=== PATIENT | female | born 1950 | race Caucasian/White ===

== ENCOUNTER → 2023-06-08 13:13 | Outpatient (REF) | payer MEDICARE, OTHER, SELFPAY ==
[2023-06-08 15:49] LABS: ALT (SGPT) 16 U/L (0-35); AST (SGOT) 22 U/L (14-36); Albumin 3.8 g/dl (3.5-5.0); Alkaline Phosphatase 94 U/L (38-126); Blood Urea Nitrogen 26 mg/dl (7-17); Carbon Dioxide 29 mmol/L (22-30); Chloride 106 mmol/L (98-107); Glucose 99 mg/dl (70-99); Magnesium 2.2 mg/dl (1.6-2.3); Phosphorus 3.5 mg/dl (2.5-4.5); Potassium 4.8 mmol/L (3.5-5.1); Sodium 136 mmol/L (135-145); Total Bilirubin 0.9 mg/dl (0.2-1.3); Total Protein 7.2 g/dl (6.3-8.2); eGFR 29.38
[2023-06-08 16:00] LABS: Intact PTH 193.5 pg/ml (13.6-85.8)
== END ==
LOC: HWLAB 13:13
PROVIDERS: ATTENDING PHYSICIAN Internal Medicine Nephrology
DX: D50.0 Iron deficiency anemia secondary to blood loss (chronic) (principal); E83.10 Disorder of iron metabolism, unspecified; K71.6 Toxic liver disease with hepatitis, not elsewhere classified; K74.60 Unspecified cirrhosis of liver; N18.1 Chronic kidney disease, stage 1; N20.0 Calculus of kidney; R35.0 Frequency of micturition
CPT/HCPCS: 36415; 80053; 83735; 83970; 84100

== ENCOUNTER → 2023-06-26 13:55 | Outpatient (REF) | payer MEDICARE, OTHER, SELFPAY | LOC: DHCBC HW 13:55 | PROVIDERS: ATTENDING PHYSICIAN Internal Medicine Cardiovascular Disease | DX: I31.39 Other pericardial effusion (noninflammatory) (principal); R06.02 Shortness of breath | CPT/HCPCS: 93308 ==

== ENCOUNTER 2023-08-05 18:29 | Inpatient (IN) | payer MEDICARE, OTHER, SELFPAY ==
[2023-08-05] VITALS (7 sets, daily range): BP systolic 113–165; BP diastolic 67–142; BMI 16.5
--- NOTE | 2023-08-05 16:04 | ED.GENMED ---
History of Present Illness
General
Chief Complaint: Anxiety
Time Seen by Provider: 08/05/23 16:04
Travel History
Have you had any contact with someone who has COVID-19?: No
Do you have any symptoms of coronavirus? Fever > 100 degrees, chills, cough, shortness of breath, sore throat, loss of taste or smell, muscle aches, or headache?: No
History of Present Illness
History of Present Illness:
HPI: Much of the history is obtained by the sister at bedside�the sister has multiple concerns
#1, she has no place to go, her son is 'emotionally avoid' and does not help the patient
#2, trouble breathing she has a history of sarcoidosis and does not tolerate steroids and currently feels as if she is wheezing
#3, 16 pound weight loss
#4, acute on chronic abdominal pain
#5, severe anxiety/depression
EXAM:
GENERAL: The patient appears somewhat weak and debilitated and borderline cachectic
HEENT: Slightly dry mucosa
CARDIOVASCULAR: No murmurs, normal heart rate, regular rhythm, No chest wall tenderness
PULMONARY: No respiratory distress, some scant wheeze noted in the lower airway and upper airway
ABDOMEN: Soft with no peritoneal signs, no tenderness
NEUROLOGIC: Fair strength all extremities, no coordination deficits
PSYCHIATRIC: Flat affect
EXTREMITIES: Nontender, no edema, moves all extremities equally
SKIN: No rash, no lesions
TIME OF INITIAL ENCOUNTER: 4:20 PM
NUMBER AND COMPLEXITY OF PROBLEMS ADDRESSED AT THE ENCOUNTER
� Chronic conditions affecting care: Asthma/sarcoidosis, CAD, high blood pressure, hyperlipidemia, CKD, hypothyroidism
� Acute Exacerbation and/or Progression of Chronic Illness: Acute exacerbation of sarcoid
� Differential Diagnosis includes: PRINCE, dehydration, electrolyte abnormality, worsening renal function, sarcoidosis exacerbation
AMOUNT AND/OR COMPLEXITY OF DATA TO BE REVIEWED AND ANALYZED
� I performed an independent evaluation of and my interpretation is:
EKG:
CT:
X-rays: Chest x-ray shows no acute abnormality
Laboratory Studies: White count 3.4, remainder of CBC unremarkable, creatinine 1.7 which is slightly improved compared to prior.
Other:
� Review of other/old records: The patient was admitted here about 4 months ago, at that time she had abnormal LFTs she had an MRI MRCP at that time echo that admission showed normal EF and normal diastolic function she was
treated with Levaquin last admission.
� Clinical information was obtained by an independent historian: I spoke to the sister at bedside
� Prescriptions/Medications Considered but not given: Did not give steroids at patient's request as she does not tolerate the steroids
� Further testing considered but not performed:
RISK OF COMPLICATIONS AND/OR MORBIDITY OR MORTALITY OF PATIENT MANAGEMENT
� Social determinants of health affecting care: Currently does not have a stable home situation
� Discussion with other providers:
� Escalation of care including admission/observation vs risk of discharge considered:Sats are in the low to mid 90%'s. She is very concerned about her breathing and she is clearly wheezing. Neb is given. Renal function is
slightly improved compared to prior. She was given IV fluids. Regardless, the sister feels that she cannot be safely sent home. She is doing poorly as an outpatient. She is also very concerned about the sarcoid.
Past History
Past History
ED Past Medical History: Asthma, CAD, GERD, HTN, Hypercholesterolemia, [place], Hypothyroidism and Other (sarcoidosis, renal insuff, hyperparathyroidism, anemia)
ED Past Surgical History: Cholecystectomy and Gynecological
Social History
Tobacco: Non-smoker
Alcohol: None
Drug: None
Personal: Single
Living: alone
Employment: Retired
Family History
Family History: Other (Noncontributory)
Phy Exam
Physical Exam
Physical Exam:
See HPI
Course
Orders/Labs/Results
Orders:
Orders
08/05/23 16:08
0.9% Sodium Chloride 1000 ml [Nss] 1,000 ml IV BOLUS
08/05/23 16:17
CR Chest - 2 Views Urgent
Comment:
Reason For Exam: sob sarcoidosis
08/05/23 16:18
Ipratropium/Albuterol Sulfate [Duoneb] 3 ml INH R NOW ONE
08/05/23 16:22
Crisis Consult Urgent
Reason for Consult: severe anxiety / depression
08/05/23 16:27
Complete Blood Count/With Diff Urgent
Comprehensive Metabolic Panel Urgent
TSH Reflex To Free T4 Urgent
08/05/23 17:33
Famotidine [Pepcid] 20 mg IV NOW STA
08/05/23 18:05
EKG [Electrocardiogram (*1)] Stat
Reason for Study: QTc Monitoring
Abnormal Lab Results
08/05/23
16:27
WBC 3.4 L 10^3/uL
(4.8-10.8)
RDW 15.0 H %
(11.5-14.5)
Absolute Lymphs (auto) 0.4 L 10^3/uL
(1.2-3.4)
Lymphocytes % 11.1 L %
(20.5-51.1)
Monocytes % 14.0 H %
(1.7-9.3)
BUN 30 H mg/dl
(7-17)
Creatinine 1.7 H mg/dL
(0.6-1.0)
08/05/23 16:27
08/05/23 16:27
Vital Signs
Initial and Last Documented VS:
Initial Vital Signs
Temp Pulse Resp BP Pulse Ox
97.8 F 63 20 113/67 97
08/05/23 15:31 08/05/23 15:31 08/05/23 15:31 08/05/23 15:31 08/05/23 15:31
Last Documented Vital Signs
Temp Pulse Resp BP Pulse Ox
97.8 F 63 20 113/67 97
08/05/23 15:31 08/05/23 15:31 08/05/23 15:31 08/05/23 15:31 08/05/23 15:31
*Critical Care Note
Total Time (30-74mins, 75-104mins- exclusive of procedures): Not Applicable
ED Attending Note
-
Portions of this chart may have been created with voice recognition software.� Occasional wrong word or��sound alike� substitutions may have occurred due to the inherent limitations of voice recognition software.
Discharge Plan
Departure
Patient Disposition: Admit
Date of Disposition: 08/05/23
Time of Disposition: 18:13
Presentation/result/management discussed w/ accepting MD/DO: Hospitalist
Discharge Problem:
Adult failure to thrive
Prescriptions:
No Action
budesonide [Pulmicort] 0.5 MG/2 ML suspension for nebulization
0.5 mg inhalation R BID
acetaminophen [Tylenol Extra Strength] 500 mg Tablet
500 mg PO DAILYPRN PRN (Reason: mild pain)
lorazepam 0.5 mg Tablet
0.25 mg PO HSPRN PRN (Reason: anxiety)
Patient Comments:
04/06/23 filled on 02/09/23 #30
levothyroxine 50 mcg Tablet
50 mcg PO DAILY
erythromycin 5 mg/gram (0.5 %) Ointment
1 applic BOTH EYES HS
Patient Comments:
04/06/23 filled on 03/21/23
Systane (PF) 0.4-0.3 % Dropperette
1 drp BOTH EYES BID
levalbuterol tartrate [Xopenex HFA] 45 mcg/actuation Hfa Aerosol Inhaler
2 inh INHALATION R Q6HPRN PRN (Reason: sob)
losartan 50 MG tablet
50 mg PO HS
atorvastatin 80 MG tablet
80 mg PO HS
losartan 25 MG tablet
25 mg PO DAILY
aspirin 81 MG tablet,delayed release (DR/EC)
81 mg PO DAILY Qty: 0 0RF
ipratropium-albuterol 0.5 mg-3 mg(2.5 mg base)/3 mL Solution For Nebulization
3 ml INHALATION R Q6HPRN PRN (Reason: sob)
bismuth subsalicylate [Pepto-Bismol] 262 mg/15 mL Suspension
262 mg PO BIDPRN PRN (Reason: sour somach)
clotrimazole-betamethasone 1-0.05 % Cream
1 applic TOPICAL BIDPRN PRN (Reason: fungal infection)
Patient Comments:
04/06/23 patient applies cream to vaginal area.
nitroglycerin 0.4 mg Tablet, Sublingual
0.4 mg SUBLINGUAL [id number] PRN (Reason: chest pain)
carvedilol 12.5 mg Tablet
12.5 mg PO BID Qty: 60 0RF
polyethylene glycol 3350 [HealthyLax] 17 gram Powder In Packet
17 g PO DAILY PRN (Reason: constipation) Qty: 0 0RF
levofloxacin 250 mg Tablet
250 mg PO DAILY Qty: 5 0RF
sucralfate [Carafate] 1 gram tablet
1 g PO ACHS Qty: 90 0RF
omeprazole 40 mg capsule,delayed release(DR/EC)
40 mg PO DAILY 56 Days Qty: 56 0RF
Referrals:
UNKNOWN - PT DOES,NOT KNOW [Family Provider] -
Discharge Date and Time
Print Language: PORTUGUESE
[2023-08-05 16:55] LABS: % Eosinophils 0.6 % (0-6); % Immature Granulocytes 0.3 % (0-0.5); % Lymphocytes 11.1 % (20.5-51.1); Absolute Lymphocytes 0.4 10^3/uL (1.2-3.4); Absolute Monocytes 0.5 10^3/uL (0.1-0.6); Absolute Neutrophils 2.5 10^3/uL (1.4-6.5); Hematocrit 40.5 % (37.0-47.0); Hemoglobin 13.4 g/dL (12.0-16.0); Mean Corp Hgb Conc. 33.1 g/dL (33.0-37.0); Mean Corpuscular Hgb 28.5 pg (27.0-31.0); Mean Platelet Volume 10.3 fL (7.4-10.4); Nucleated Red Blood Cells % 0 %; Platelet Count 184 10^3/uL (130-400); Red Blood Cell Count 4.71 10^6/uL (4.20-5.40); White Blood Cell Count 3.4 10^3/uL (4.8-10.8)
[2023-08-05 17:03] LABS: ALT (SGPT) 15 U/L (0-35); AST (SGOT) 21 U/L (14-36); Albumin 3.5 g/dl (3.5-5.0); Alkaline Phosphatase 94 U/L (38-126); Blood Urea Nitrogen 30 mg/dl (7-17); Carbon Dioxide 22 mmol/L (22-30); Chloride 107 mmol/L (98-107); Glucose 96 mg/dl (70-99); Potassium 4.8 mmol/L (3.5-5.1); Sodium 136 mmol/L (135-145); Total Bilirubin 0.8 mg/dl (0.2-1.3); Total Protein 6.7 g/dl (6.3-8.2); eGFR 31.47
[2023-08-05 17:34] LABS: TSH Reflex To Free T4 0.97 uIU/ml (0.47-4.68)
[2023-08-05] MEDS: DUONEB 3 ML INH ×2 (17:36→23:41)
[2023-08-05] MEDS: NSS 1000 IV (17:37)
[2023-08-05] MEDS: PEPCID 20 MG IV (17:43)
--- NOTE | 2023-08-05 17:46 | HPS.HSE ---
Family Physician
-
Family Physician: NOT KNOW UNKNOWN - PT DOES
Chief Complaint
-
sob
History of Present Illness
73 year old with PMH for asthma, coronary artery disease, GERD, hypertension, hyperlipidemia, [place], hypothyroidism, sarcoidosis, renal insufficiency, hyperparathyroidism, anemia presented to us with short of breath which is worse with activity,
nonproductive cough for past few days. She lost 16 pounds due to the recent stress. Patient stated some headache and dizziness. She fainted a couple times over the past few weeks. Patient stated poor appetite. Denied fever. Stated some chills.
Denied chest pain. She has a chronic epigastric pain. Denied nausea vomiting, diarrhea. Denied dysuria hematuria.
Patient received neb treatment in ER.
Admitting for further management
Medical History
Past Medical History
Past Medical History: Reports Other
Additional Past Medical History:
HTN, Hypercholesterolemia, Hypothyroidism and Renal Failure, sarcoidosis, coronary artery disease
Past Surgical History: Reports Other
Additional Past Surgical History:
Cardiac stents
Cholecystectomy
Hysterectomy
Social History
Tobacco: Non-smoker
Alcohol: None
Drug: None
Personal: Single
Family History
Family History: Not pertinent
Allergies / Home Medications
Allergies reflects when Allergies were last updated in [facility].
Home Medications with original date entered in [facility]
Allergy/Medication List:
Allergies
Allergy/AdvReac Type Severity Reaction Status Date / Time
amlodipine Allergy Unknown Verified 08/05/23 15:30
codeine Allergy Unknown Verified 08/05/23 15:30
abebe Allergy Unknown Verified 08/05/23 15:30
fluticasone Allergy Unknown Verified 08/05/23 15:30
[From Advair Diskus]
latex Allergy red rash Verified 08/05/23 15:30
and
swelling
metoprolol Allergy Unknown Verified 08/05/23 15:30
Penicillins Allergy unsure as Verified 08/05/23 15:30
mother
passed
whether
she is or
not
pentazocine lactate Allergy hallucinations, Verified 08/05/23 15:30
[From Talwin] bad head,
terrible
headaches
prednisone Allergy terrible Verified 08/05/23 15:30
headaches,
bleeding,
racing
heart
salmeterol Allergy Unknown Verified 08/05/23 15:30
[From Advair Diskus]
powders, flours (some) Allergy Due to Uncoded 08/05/23 15:30
Sarcoidosis
Home Medications
budesonide 0.5 mg/2 mL suspension for nebulization (Pulmicort) 0.5 mg inhalation R BID Lung/Breathing Issues 11/09/20
acetaminophen 500 mg tablet (Tylenol Extra Strength) 500 mg PO DAILYPRN PRN mild pain 03/03/23
atorvastatin 80 mg tablet 80 mg PO HS High Cholesterol 03/03/23
erythromycin 5 mg/gram (0.5 %) eye ointment 1 applic BOTH EYES HS Eye Condition 03/03/23
levalbuterol tartrate 45 mcg/actuation aerosol inhaler (Xopenex HFA) 2 inh inhalation R Q6HPRN PRN sob 03/03/23
levothyroxine 50 mcg tablet 50 mcg PO DAILY Thyroid 03/03/23
lorazepam 0.5 mg tablet 0.25 mg PO HSPRN PRN anxiety 03/03/23
losartan 25 mg tablet 25 mg PO DAILY Blood Pressure 03/03/23
losartan 50 mg tablet 50 mg PO HS Blood pressure 03/03/23
peg 400-propylene glycol (PF) 0.4 %-0.3 % eye drops in a dropperette (Systane (PF)) 1 drp BOTH EYES BID Eye Condition 03/03/23
aspirin 81 mg tablet,delayed release 81 mg PO DAILY Blood clot prevention/tx ##0 03/05/23
bismuth subsalicylate 262 mg/15 mL oral suspension (Pepto-Bismol) 262 mg PO BIDPRN PRN sour somach 04/06/23
clotrimazole-betamethasone 1 %-0.05 % topical cream 1 applic topical BIDPRN PRN fungal infection 04/06/23
ipratropium 0.5 mg-albuterol 3 mg (2.5 mg base)/3 mL nebulization soln 3 ml inhalation R Q6HPRN PRN sob 04/06/23
nitroglycerin 0.4 mg sublingual tablet 0.4 mg sublingual [id number] PRN chest pain 04/06/23
carvedilol 12.5 mg tablet 12.5 mg PO BID Blood pressure #60 tabs 04/10/23
levofloxacin 250 mg tablet 250 mg PO DAILY Infection #5 tabs 04/10/23
omeprazole 40 mg capsule,delayed release 40 mg PO DAILY Gastrointestinal issue 8 weeks #56 caps 04/10/23
polyethylene glycol 3350 17 gram oral powder packet (HealthyLax) 17 g PO DAILY PRN constipation #0 ea 04/10/23
sucralfate 1 gram tablet (Carafate) 1 g PO ACHS Gastrointestinal issue #90 tabs 04/10/23
Review of Systems
-
Constitutional: Reports Weight Loss
EENT: Reports No Symptoms
Respiratory: Reports Cough and Trouble Breathing
Cardiac: Reports No Symptoms
Abdomen/GI: Reports No Symptoms
: Reports No Symptoms
Musculoskeletal: Reports No Symptoms
Skin: Reports No Symptoms
Neurological: Reports Dizzy, Headache and Weakness
Endocrine: Reports No Symptoms
Hematologic/Lymphatic: Reports No Symptoms
Psych: Reports No Symptoms
Physical Exam
Vital Signs
Vital Signs
Temp Pulse Resp BP Pulse Ox
97.8 F 63 20 113/67 97
08/05/23 15:31 08/05/23 15:31 08/05/23 15:31 08/05/23 15:31 08/05/23 15:31
Physical Exam
General: Well Developed, Well Nourished and No Apparent Distress
HEENT: NormoCephalic, Moist mucous membranes and Atraumatic
Respiratory: Wheezes
Cardiac: S1/S2 and Regular Rhythm; No Murmur or Rub
GI: Soft, Non Tender, Non Distended and Normal Bowel Sounds; No Organomegaly
Rectal: Deferred by Provider
Musculoskeletal: No Clubbing, No Cyanosis and No Edema
Skin: No Rash
Neuro: AO x 3 and Nonfocal/grossly intact
Psych: Calm
Laboratory Results
-
08/05/23 16:27
08/05/23 16:27
Laboratory Results
Total Bilirubin 0.8 mg/dl (0.2-1.3) 08/05/23 16:27
AST 21 U/L (14-36) 08/05/23 16:27
ALT 15 U/L (0-35) 08/05/23 16:27
Alkaline Phosphatase 94 U/L (38-126) 08/05/23 16:27
Data Reviewed
-
Lab Data: Labs Reviewed by me
Impression/Plan
-
# Short of breath/cough likely from pulmonary sarcoidosis flare
# History of COPD and asthma
-Steroid intolerance-because of psychosis
-Outpatient follows up with Dr. Nj
-Albuterol and budesonide
-IV Levaquin
-Pulmonology consult
#hxt of weakness/fainting
-PT consulted
-orthostatics
# HTN
- cont� losartan and Coreg
#hxt of PUD/hiatal hernia
-Omeprazole and Carafate continued
#CAD with CARINA stent to RCA in 2014 after STEMI
#Hyperlipidemia
-continue aspirin and Coreg, statin
#Hypothyroidism
-cont� Synthroid
#CKD3b
-Creatinine stable
#Arthritis/fibromyalgia
#Anxiety
-lorazepam PRN
#Diverticulosis
#Degenerative disc disease at L4-5
#DVT Prophylaxis- SCD
#Full code
--- NOTE | 2023-08-05 18:09 | W.PN.UPDATE ---
Update Note
Progress Note Update
This note serves as an addendum to the H&P by spares scheduler Monika Perez on August 05, 2023.
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
stents, stomach wall thickening, hiatal hernia, chronic biliary dilatation, small volume ascites, small bilateral pleural effusions, 3.9 cm hepatic hemangioma in the right lobe of the liver, Chronic hypercalcemia, Hypothyroidism, Asthma, Chronic
kidney disease, renal cysts, Arthritis/fibromyalgia, Anxiety, Diverticulosis and Degenerative disc disease L4-L5 presented with worsening cough and worsening shortness of breath, she did report chronic shortness of breath. Patient has been under a
lot of stress lately, and lost her home and moved into her son's home, she has had several episodes of syncope. She also reported some chills and headache. She has not been eating much.
Vital Signs -- saturating well now on room air, initially needed 2 L. Otherwise vitals stable.
Physical Exam
General: Anxious
HEENT: Normocephalic
Cardiovascular: S1-S2. RRR.
Respiratory: Crackles (bilateral), Non-Labored Respirations and Stridor (n)
GI: Soft and Non Distended. Positive bowel sounds.
Neurology: Awake and Alert
Skin: Warm and Dry
Assessment/Plan
Shortness of Breath
Cough
Sarcoidosis
-Avoid steroids as patient intolerant of steroids
-Levaquin 250 mg IV daily (first check QTc)
-Duonebs scheduled
-Consult pulmonary, recommendations appreciated
Recent Syncopal episodes
-Orthostatic vital signs
-Normal Saline 75 cc/hr
-Echocardiogram
-Troponins
Stress/Anxiety
History of Anxiety
-Will consider psychiatry consult
Acute hypoxic respiratory insufficiency
Acute bronchitis
Fluid overload
Epigastric pain with elevated LFTs - LFTs now WNL
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
Hypertension - monitor vital signs. Continue home Losartan and Coreg.
Coronary disease with stents - Continue home Aspirin and Statin.
History of OR
Stomach wall thickening
Hiatal hernia
Chronic biliary dilatation
Small volume ascites
Small bilateral pleural effusions
3.9 cm hepatic hemangioma in the right lobe of the liver
Chronic hypercalcemia
Hypothyroidism - Continue home Levothyroxine.
Asthma
Chronic kidney disease Stage 3 to 4
Renal cysts
Arthritis/fibromyalgia
GERD
Anxiety
Diverticulosis
Degenerative disc disease L4-L5
History of COVID-19
DVT Prophylaxis: Lovenox
--- NOTE | 2023-08-05 21:00 | PTCARENOTE ---
Received pt into room 2139. Patient is ambulatory x1 assist without a walker, AAOx3, VSS. Patient is very anxious. Tele, NSR. Moist, productive cough. Lungs sounds include inspiratory/expiratory wheeze and coarse. 98% on RA. The rest of assessment
as documented. Patient resting comfortably in bed, call dominguez within reach.
[2023-08-05] MEDS: HEPARIN SC (21:23)
[2023-08-05] MEDS: REFRESH EYE DROPS (PF) BOTH EYES (21:27)
[2023-08-05] MEDS: PULMICORT INH (21:39)
[2023-08-05] MEDS: DUONEB INH (21:39)
[2023-08-05] MEDS: COREG 12.5 MG PO (21:43)
[2023-08-05] MEDS: COZAAR 50 MG PO (21:43)
[2023-08-05] MEDS: LIPITOR 80 MG PO (21:43)
[2023-08-05] MEDS: ERYTHROMYCIN 0.5% OPHTHALMIC OINTMENT 1 APPLIC BOTH EYES (22:21)
[2023-08-05] MEDS: LEVAQUIN 50 IV (22:21)
[2023-08-05] MEDS: TYLENOL 500 MG PO (22:35)
--- NOTE | 2023-08-05 23:15 | W.PN.UPDATE ---
Update Note
Progress Note Update
patient concerned about Ativan giving her a hung over sensation along with nausea the following day after taking it. She asked for Valium which she had taken many years ago and she doesn't recall any concerns..We agreed on a lower dose though (1 mg)
since she does have a tendency to be sensitive to this class of medications. She describes needing something to take the 'edge' off as she explained her unfortunate situation.
[2023-08-05] MEDS: NON-FORMULARY ITEM TOPICAL (23:17)
[2023-08-06] VITALS (8 sets, daily range): BP systolic 81–151; BP diastolic 49–74; PULSE 59–69; O2SAT 96
[2023-08-06] MEDS: VALIUM 1 MG PO ×3 (00:16→23:45)
[2023-08-06 00:20] LABS: Troponin I < 0.012 ng/ml
[2023-08-06] MEDS: NSS 500 IV (04:33)
--- NOTE | 2023-08-06 06:50 | PTCARENOTE ---
pt BP at 0300 vitals 81/49 automatic. Manual 76/42. Notified [facility]. Ordered 500ml NS Bolus. Recheck BP 128/69.
[2023-08-06 07:16] LABS: Hematocrit 38.9 % (37.0-47.0); Hemoglobin 13.3 g/dL (12.0-16.0); Mean Corp Hgb Conc. 34.2 g/dL (33.0-37.0); Mean Corpuscular Hgb 28.9 pg (27.0-31.0); Mean Corpuscular Volume 84.4 fL (81.0-99.0); Mean Platelet Volume 10.5 fL (7.4-10.4); Platelet Count 177 10^3/uL (130-400); Red Blood Cell Count 4.61 10^6/uL (4.20-5.40); Red Cell Dist. Width 14.9 % (11.5-14.5); White Blood Cell Count 3.5 10^3/uL (4.8-10.8)
[2023-08-06] MEDS: PULMICORT 0.5 MG INH ×2 (07:27→20:28)
[2023-08-06] MEDS: DUONEB 3 ML INH ×4 (07:27→20:28)
[2023-08-06 07:33] LABS: Blood Urea Nitrogen 28 mg/dl (7-17); Calcium 9.8 mg/dl (8.4-10.2); Carbon Dioxide 18 mmol/L (22-30); Chloride 111 mmol/L (98-107); Estimated Creatinine Clearance 23 ml/min; Glucose 92 mg/dl (70-99); Sodium 137 mmol/L (135-145); eGFR 33.84
[2023-08-06 07:35] LABS: Troponin I < 0.012 ng/ml
[2023-08-06] MEDS: SYNTHROID PO (08:08)
[2023-08-06] MEDS: COREG PO (08:28)
[2023-08-06] MEDS: COZAAR PO (08:29)
--- NOTE | 2023-08-06 09:24 | CON.PUL ---
Consultation
Consultation Request
Date/Time Consultation Requested: 08/05/2023 - 2049
Date/Time Consultation Performed: 08/06/2023 - 1039
Requesting Provider: DYLAN Wadsworth
Performing Provider: Dr. Ortega
Reason for Consultation: Hx of sarcoidosis
Medical History
-
Chief Complaint: Weight loss, depression, weakness and cough
History of Present Illness:
73-year-old female with past med history of sarcoidosis, CAD s/p coronary stents, Evert, GERD and history of COPD with severe restrictive lung disease presents with multiple complaints including depression, weakness, cough and shortness of breath.
She also endorses weight loss. She says she is lost 16 pounds due to recent stress. CXR does not show any acute cardiopulmonary process. And there are stable advanced chronic changes likely related to her history of sarcoidosis. She was admitted
to the hospitalist service, started on DuoNebs, Levaquin, and continued on her budesonide 0.5 mg inhaled BID. Pulmonary service now consulted for additional management/recommendations.
When I saw the patient she was clearly overwhelmed. She says she lost her home this past May as she was renting from the homeowners, and then the home is now being sold so the patient was kicked out. The patient has been living with her son
and this is 'not working out.' She is very stressed. About 10 days ago she developed a cough which is severe at times and has caused her pain in her chest due to the coughing spells. Cough is productive of a pale lemon colored phlegm. She denies
seeing any blood in her phlegm. She also has a headache. She says that her current symptoms are consistent with her sarcoidosis flares although it is more severe this time. She has been taking her nebulized inhalers as prescribed, including her
DuoNebs TID and her budesonide BID. She uses Xopenex at home only as needed. Her other main complaint is that she is having difficulty swallowing and this is caused her to lose some weight. She also feels very weak and this is affecting her
ability to take care of herself and ambulate. She currently denies abdominal pain, nausea, diarrhea, fevers or chills. Of note, she says that she cannot take prednisone because it causes her hands to bleed, which is the adverse effect that
happened last time she took it 'many years ago.'
Says she was Dx with sarcoidosis in [address] [facility] [address] Lanier. She takes budesonide BID. She also follows with us in the office, last saw Dr. Nj on 06/15/2023. No changes to her pulmonary regimen was made. Her inhaled budesonide was
refilled as well as her as needed Xopenex, her prn duonebs, and her prn Ativan. A Levaquin prescription was provided X7 days just in case. She had walked 900 feet during that office visit with SpO2 remaining 95% oxygen and heart rate was adequate.
PMHX: Pulmonary sarcoidosis, CAD s/p coronary stents, Hx of [place], HTN, anxiety, breast pain, Hx of costochondritis, GERD, Hx of COVID-19, hypothyroidism, COPD
PSHx: Cholecystectomy, hysterectomy, tooth pulled
Past Medical History
Past Medical History: Other (Above as per HPI)
Past Surgical History: Other (Above as per HPI)
Social History
Tobacco: Former Smoker (Quit >15 years ago)
Alcohol: None
Drug: None
Environmental Exposures: [place] to live [place] with [place] exposure[place] >15 years has a cat
Family History
Family History: CAD (Mother: History of CABG x 4; maternal grandmother: [place]) and Cancer (Father: Melanoma)
Allergies / Home Medications
Allergies
Allergy/AdvReac Type Severity Reaction Status Date / Time
amlodipine Allergy Unknown Verified 08/05/23 15:30
codeine Allergy Unknown Verified 08/05/23 15:30
abebe Allergy Unknown Verified 08/05/23 15:30
fluticasone Allergy Unknown Verified 08/05/23 15:30
[From Advair Diskus]
latex Allergy red rash Verified 08/05/23 15:30
and
swelling
metoprolol Allergy Unknown Verified 08/05/23 15:30
Penicillins Allergy unsure as Verified 08/05/23 15:30
mother
passed
whether
she is or
not
pentazocine lactate Allergy hallucinations, Verified 08/05/23 15:30
[From Talwin] bad head,
terrible
headaches
prednisone Allergy terrible Verified 08/05/23 15:30
headaches,
bleeding,
racing
heart
salmeterol Allergy Unknown Verified 08/05/23 15:30
[From Advair Diskus]
powders, flours (some) Allergy Due to Uncoded 08/05/23 15:30
Sarcoidosis
Home Medications
�Medication �Instructions �Recorded �Confirmed �Last Taken �Type
budesonide 0.5 mg/2 mL suspension 0.5 mg inhalation R BID 11/09/20 08/05/23 08/05/23 History
for nebulization (Pulmicort) Lung/Breathing Issues
acetaminophen 500 mg tablet 500 mg PO DAILYPRN PRN mild pain 03/03/23 08/05/23 04/05/23 History
(Tylenol Extra Strength)
atorvastatin 80 mg tablet 80 mg PO HS High Cholesterol 03/03/23 08/05/23 08/04/23 History
erythromycin 5 mg/gram (0.5 %) eye 1 applic BOTH EYES HS Eye Condition 03/03/23 08/05/23 08/04/23 History
ointment
levalbuterol tartrate 45 2 inh inhalation R Q6HPRN PRN sob 03/03/23 08/05/23 Unknown History
mcg/actuation aerosol inhaler
(Xopenex HFA)
levothyroxine 50 mcg tablet 50 mcg PO DAILY Thyroid 03/03/23 08/05/23 08/05/23 History
lorazepam 0.5 mg tablet 0.25 mg PO HSPRN PRN anxiety 03/03/23 08/05/23 04/05/23 History
losartan 25 mg tablet 25 mg PO DAILY Blood Pressure 03/03/23 08/05/23 08/05/23 History
losartan 50 mg tablet 50 mg PO HS Blood pressure 03/03/23 08/05/23 08/04/23 History
peg 400-propylene glycol (PF) 0.4 1 drp BOTH EYES BID Eye Condition 03/03/23 08/05/23 08/05/23 History
%-0.3 % eye drops in a dropperette
(Systane (PF))
aspirin 81 mg tablet,delayed 81 mg PO DAILY Blood clot 03/05/23 08/05/23 08/05/23 Rx
release prevention/tx ##0
ipratropium 0.5 mg-albuterol 3 mg 3 ml inhalation R QID 04/06/23 08/05/23 08/05/23 History
(2.5 mg base)/3 mL nebulization
soln
nitroglycerin 0.4 mg sublingual 0.4 mg sublingual [id number] PRN 04/06/23 08/05/23 Unknown History
tablet chest pain
carvedilol 12.5 mg tablet 12.5 mg PO BID Blood pressure #60 04/10/23 08/05/23 08/05/23 Rx
tabs
levofloxacin 250 mg tablet 250 mg PO DAILY Infection #5 tabs 04/10/23 08/05/23 08/05/23 Rx
hypochlorous acid 0.01 %-sodium 1 spray topical BID both eyes 08/05/23 08/05/23 Unknown History
chloride topical spray (Avenova)
omeprazole 40 mg capsule,delayed 40 mg PO DAILYPRN PRN gerd 08/05/23 08/05/23 Unknown History
release
Review of Systems
-
History Source: Patient
All other systems: Negative unless noted
Vitals / Labs / Diagnostic Testing
Vital Signs
Temp Pulse Resp BP Pulse Ox
97.8 F 57 16 102/61 98
08/06/23 07:20 08/06/23 08:29 08/06/23 07:32 08/06/23 08:29 08/06/23 07:32
Lab Data
08/06/23 06:50
08/06/23 06:50
Diagnostic Testing:
Physical Exam
-
HEENT: Normocephalic and Anicteric
Cardiovascular: S1/S2 and Peripheral Edema (negative)
Respiratory: Wheeze (negative), Rales (negative), Accessory Resp Muscle Use (negative) and Other (Reduced breath sounds; prolonged expiration with turbulent airflow heard)
GI: Soft, Non Distended, Non Tender and Normal Bowel Sounds
Neurology: Awake and Alert
Skin: Warm and Dry
General: Comfortable and Other (Appears anxious)
Assessment
-
Assessment: 73-year-old female with past med history of sarcoidosis, CAD s/p coronary stents, Evert, GERD and history of COPD with severe restrictive lung disease presents with multiple complaints including depression, weakness, cough and shortness
of breath. She also endorses weight loss. She says she is lost 16 pounds due to recent stress. CXR does not show any acute cardiopulmonary process. And there are stable advanced chronic changes likely related to her history of sarcoidosis. She
was admitted to the hospitalist service, started on DuoNebs, Levaquin, and continued on her budesonide 0.5 mg inhaled BID. Pulmonary service now consulted for additional management/recommendations.
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
Impression:
#Shortness of breath with paroxysmal coughing spells suspected to be due to sarcoidosis versus COPD flare - she believes that it feels more like the former
#Failure to thrive with dysphagia
#Depression, likely due to adjustment disorder given her recent life events
#Leukopenia � chronic
#Hx of pulmonary sarcoidosis (stage IV) on nebulized ICS at home
#Hypothyroidism
#Hypertension
#CKD III-IV
#Mild intermittent asthma
Plan:
- Continue Duonebs QID with prn doses in between
- Continue ABx with Levaquin --> not sure if she truly needs this given no PNA seen on CXR. I will change this to Zithromax (mainly for anti-inflammatory effect) and complete 5 days (QTc: 409ms)
- I offered to start systemic steroids with prednisone versus Solu-Medrol, however she is not willing to do this considering she has had a serious side effect in the remote past where she was bleeding 'through her skin.'
- Maintain MAP>65
- Psych consulted
- Recommend GI consult given her dysphagia and weight loss in this female patient >50-years old
- Goal BG 140-180mg/dL
- Replete electrolytes with K>4, Mg>2
- PT/OT
- Encourage incentive spirometer
- stress ulcer ppx: n/a
- DVT ppx: HSQ
Pulmonary service will continue to follow along.
Total time spent today was 55 minutes for this encounter. Time includes reviewing laboratory test/imaging results, reviewing pertinent medical records, obtaining and reviewing medical history, performing an appropriate exam, ordering medications,
tests and procedures. Time also includes documentation of this encounter, coordinating patient care and communicating with other healthcare professionals. Total time does not include separately billed tests performed on this date of service.
Data:
CXR 08-05-2023:
1. No acute cardiopulmonary process.
2. Stable appearance of advanced chronic changes related to sarcoidosis.
Outpatient [facility] Data:
PFT:
������ [place] 04/13/23: FVC 1.47/49%, FEV1 0.63/20%, ratio 43. When compared to 2019, this is stable
�������[place] 06/14/18 reveals FVC 1.57/49%, FEV1 0.65/27% ratio 41 there is a 24% improvement in the FEV1 following bronchodilator, when compared to spirometry FVC has dropped from 2.38 to 1.57.
�������PFT 2014 reveals FVC 2.38/71%, FEV1 0.86/34% ratio 36, TLC 4.29/85% and DLCO 14.1/57%.
[2023-08-06] MEDS: REFRESH EYE DROPS (PF) 1 DROPS BOTH EYES ×2 (09:41→20:03)
[2023-08-06] MEDS: HEPARIN SC ×2 (09:42→09:49)
[2023-08-06] MEDS: ASPIR LOW (ENTERIC COATED) 81 MG PO (09:42)
[2023-08-06] MEDS: NON-FORMULARY ITEM 1 SPRAY TOPICAL ×2 (09:47→22:21)
--- NOTE | 2023-08-06 10:34 | CM ---
Initial assessment completed with patient who was living in a 2 story home w basement with B/B on 1st floor, 3 steps to enter. Lives in [facility]. Son lives with her and she said she cannot go back to the house because of him. Her sister came to
her home and brought her to the hospital. Patient is unsure where she will go after discharge. Sister lives in the [facility]. Support system is her sister. Cannot rely on son at this time. [employer] patient was independent and drove. Has a
nebulizer machine, no in-home services.
Patient reports that she is uncomfortable in the room she is in. She feels isolated and the room has a strange feeling. Nursing staff is aware. Nursing yard labor supervisor notified. Pharmacy will be [facility] in [place]. PCP is Dr. Nj.
Anticipate No skilled needs at discharge.
--- NOTE | 2023-08-06 11:33 | PTCARENOTE ---
pt to be transferred to a semi private. per MD pt requested a private room and no patient is stating she demands a roommate and that she is 'not taking no for an answer' MD made aware and he will also be placing a psych consult. pt states she does
not like the valium but also does not like to take ativan that she has prescribed for her anxiety either
--- NOTE | 2023-08-06 12:33 | CON.MD ---
Consultation - Medical
-
chart reviewed- pt seen. 45 minutes spent.
This is a 73 year old with PMH for asthma, coronary artery disease, GERD, hypertension, hyperlipidemia, [place], hypothyroidism, sarcoidosis, renal insufficiency, hyperparathyroidism, anemia who is currently admitted to for failure to thrive,
weight loss.
She is bright, pleasant, admittedly anxious over her current living situation. She says that she has lost a lot of weight over the last few months because of the uncertainty of her living situation. About a month ago the ed special education teacher of the house where
she had been renting an 'in law apartment' for 20 years informed her that she had to move out due to a sale of the house. 'I am 74 years old I didn't know what to do or where to go, I have sarcoidosis and lots of other medical problems.' Her son
decided she could move in with him, which pt did, but the setting is not good for both of them to be living together. She says that he is difficult to live with and not sympathetic to her needs. Her anxiety increased, and she became unable to eat
much.
Her anxiety is not described as panic attacks, more a general sense of unease. She denies depressed mood. She is understandably anxious about what the future will hold, as she knows she can not live with her son- 'My sister will let me stay with
her until we can find something better.' She also describes loneliness.
In terms of the anxiety, she says she is very sensitive to medications, and that even the lowest dose of Ativan gave her a 'morning hangover.' Valium 1 mg has helped her in the past, and she would like it to be available on a prn basis for her
while here, although it too has a 'hangover ' effect on her. She is not interested in adding Remeron or any other antidepressants- which I do not think she needs.
MSE- Alert, pleasant though anxious. Thoughts clear and coherent. No psychotic symptoms; mood not depressed. No suicidal or homicidal ideation. Cognition intact. Oriented x 3. Insight and judgment intact.
TSH normal
A/P
Intermittent anxiety secondary to recent stressors
Would rx Valium 1 mg prn HS rather than Ativan, as pt requests.
[2023-08-06 12:53] LABS: Troponin I < 0.012 ng/ml
--- NOTE | 2023-08-06 14:36 | W.PN.HOSP.TC ---
Today's Communication/Plan
-
Continue antibiotics
Appreciate pulmonary recommendations
Monitor QTc while on fluoroquinolone
Assessment / Plan
Assessment / Plan
Physical Exam
General: Anxious
HEENT: Normocephalic
Cardiovascular: S1-S2. RRR.
Respiratory: Crackles (bilateral), Non-Labored Respirations and Stridor (n)
GI: Soft and Non Distended. Positive bowel sounds.
Neurology: Awake and Alert
Skin: Warm and Dry
Assessment/Plan
Shortness of Breath
Cough
Sarcoidosis
-Avoid steroids as patient intolerant of steroids
-Levaquin 250 mg IV daily (monitor QTc)
-Duonebs scheduled
-Consult pulmonary, evaluation and recommendations appreciated
Recent Syncopal episodes
-Orthostatic vital signs negative on August 06, 2023
-Normal Saline 75 cc/hr
-Echocardiogram
-Troponins negative
Stress/Anxiety
History of Anxiety
-Psychiatry consulted, recommendations appreciated: switched to prn Valium (instead of prn Ativan) as per psychiatry
Acute hypoxic respiratory insufficiency
Acute bronchitis
Fluid overload
Epigastric pain with elevated LFTs - LFTs now within normal limits
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
Hypertension - monitor vital signs. Continue home Losartan and Coreg.
Coronary disease with stents - Continue home Aspirin and Statin.
History of [place]
Stomach wall thickening
Hiatal hernia
Chronic biliary dilatation
Small volume ascites
Small bilateral pleural effusions
3.9 cm hepatic hemangioma in the right lobe of the liver
Chronic hypercalcemia
Hypothyroidism - Continue home Levothyroxine.
Asthma
Chronic kidney disease Stage 3 to 4
Renal cysts
Arthritis/fibromyalgia
GERD
Anxiety
Diverticulosis
Degenerative disc disease L4-L5
History of COVID-19
DVT Prophylaxis: Lovenox
Anticipated Discharge: 24 - 48 hours
Subjective/Interval History
-
Date of Service: August 06, 2023
Patient was seen and examined. She now reported that she wants to be in a room with a roommate, says she is still feeling some shortness of breath and cough.
Objective Data
-
Labs:
Laboratory Results
08/06/23
06:50
WBC 3.5 L
Hgb 13.3
Hct 38.9
Plt Count 177
Sodium 137
Potassium 5.0
Chloride 111 H
Carbon Dioxide 18 L
BUN 28 H
Creatinine 1.6 H
Glucose 92
Calcium 9.8
Vital Signs:
Vital Signs
Temp Pulse Resp BP Pulse Ox
97.7 F 59 18 118/69 97
08/06/23 12:17 08/06/23 12:17 08/06/23 12:17 08/06/23 12:17 08/06/23 12:17
I&O
08/05/23 08/06/23 08/07/23
06:59 06:59 06:59
Intake Total 320 / 320
Balance 320 / 320
[2023-08-06] MEDS: PROTONIX 40 MG PO (15:16)
--- NOTE | 2023-08-06 15:27 | PTCARENOTE ---
pt requesting a roommate. on standard precautions. being transferred to [facility]. report to be called and transferred via wheelchair
--- NOTE | 2023-08-06 18:26 | PTCARENOTE ---
Patient received from [address] [place] [address] awake alert and oriented. does have mild anxiety. Requesting and given tylenol . Call dominguez in reach.
[2023-08-06] MEDS: TYLENOL 500 MG PO (18:29)
[2023-08-06 19:42] LABS: Troponin I < 0.012 ng/ml
[2023-08-06] MEDS: ZITHROMAX INFUSION 250 IV (22:21)
[2023-08-06] MEDS: TESSALON PERLES 200 MG PO (22:22)
[2023-08-06] MEDS: LIPITOR 80 MG PO (22:22)
[2023-08-06] MEDS: HEPARIN 5000 UNITS SC (22:22)
[2023-08-06] MEDS: COZAAR 50 MG PO (22:26)
[2023-08-06] MEDS: COREG 12.5 MG PO (22:26)
[2023-08-06] MEDS: ERYTHROMYCIN 0.5% OPHTHALMIC OINTMENT 1 APPLIC BOTH EYES (22:26)
[2023-08-07 03:06] VITALS: BP 124/68
[2023-08-07] MEDS: SYNTHROID 50 MCG PO (06:21)
[2023-08-07] MEDS: DUONEB 3 ML INH ×4 (07:14→19:44)
[2023-08-07] MEDS: PULMICORT 0.5 MG INH ×2 (07:14→19:44)
[2023-08-07 07:25] VITALS: BP 150/84
[2023-08-07 07:40] LABS: Hematocrit 38.7 % (37.0-47.0); Hemoglobin 13.2 g/dL (12.0-16.0); Mean Corp Hgb Conc. 34.1 g/dL (33.0-37.0); Mean Corpuscular Hgb 28.6 pg (27.0-31.0); Mean Corpuscular Volume 83.9 fL (81.0-99.0); Mean Platelet Volume 11.2 fL (7.4-10.4); Platelet Count 201 10^3/uL (130-400); Red Blood Cell Count 4.61 10^6/uL (4.20-5.40); White Blood Cell Count 5.8 10^3/uL (4.8-10.8)
[2023-08-07 08:10] LABS: Blood Urea Nitrogen 25 mg/dl (7-17); Calcium 9.8 mg/dl (8.4-10.2); Carbon Dioxide 19 mmol/L (22-30); Chloride 111 mmol/L (98-107); Estimated Creatinine Clearance 23 ml/min; Glucose 91 mg/dl (70-99); Potassium 4.6 mmol/L (3.5-5.1); Sodium 136 mmol/L (135-145); eGFR 33.84
[2023-08-07] MEDS: REFRESH EYE DROPS (PF) BOTH EYES ×2 (08:24→08:38)
[2023-08-07] MEDS: COREG 12.5 MG PO (08:24)
[2023-08-07] MEDS: TESSALON PERLES 200 MG PO ×3 (08:24→22:41)
[2023-08-07] MEDS: COZAAR 25 MG PO (08:24)
[2023-08-07] MEDS: ASPIR LOW (ENTERIC COATED) PO ×2 (08:24→08:38)
[2023-08-07] MEDS: HEPARIN SC ×3 (08:25→19:59)
--- NOTE | 2023-08-07 09:09 | W.PN.PUL.V3 ---
Today's Communication / Plan
-
Continue nebulizers.
Wean FiO2.
Anxiolytics.
Assessment
-
Assessment: 73-year-old female with past med history of sarcoidosis, CAD s/p coronary stents, Evert, GERD and history of COPD with severe restrictive lung disease presents with multiple complaints including depression, weakness, cough and shortness
of breath. She also endorses weight loss. She says she is lost 16 pounds due to recent stress. CXR does not show any acute cardiopulmonary process. And there are stable advanced chronic changes likely related to her history of sarcoidosis. She
was admitted to the hospitalist service, started on DuoNebs, Levaquin, and continued on her budesonide 0.5 mg inhaled BID. Pulmonary service now consulted for additional management/recommendations.
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
Impression:
#Shortness of breath with paroxysmal coughing spells suspected to be due to sarcoidosis versus COPD flare - she believes that it feels more like the former
#Failure to thrive with dysphagia
#Depression, likely due to adjustment disorder given her recent life events
#Leukopenia � chronic
#Hx of pulmonary sarcoidosis (stage IV) on nebulized ICS at home
#Hypothyroidism
#Hypertension
#CKD III-IV
#Mild intermittent asthma.
Panic attacks
Plan:
Respiratory status still somewhat tenuous.
Supplemental oxygen as needed.
Aspiration Precautions
Steroids recommended-patient refused-states she is intolerant in the past.
Duo nebs. Continue
Budesonide nebulizers
Tessalon pearls as needed
Check cultures.
Empiric antibiotics-on azithromycin 250 mg daily-finish 5 day course
Anxiolytics for panic attacks per primary team
DVT prophylaxis-on subcutaneous heparin
Outpatient pulmonary follow-up
Data:
CXR 08-05-2023:
1. No acute cardiopulmonary process.
2. Stable appearance of advanced chronic changes related to sarcoidosis.
Outpatient [facility] Data:
PFT:
������ [place] 04/13/23: FVC 1.47/49%, FEV1 0.63/20%, ratio 43. When compared to 2018, this is stable
�������[place] 06/14/18 reveals FVC 1.57/49%, FEV1 0.65/27% ratio 41 there is a 24% improvement in the FEV1 following bronchodilator, when compared to spirometry FVC has dropped from 2.38 to 1.57.
�������PFT 2013 reveals FVC 2.38/71%, FEV1 0.86/34% ratio 36, TLC 4.29/85% and DLCO 14.1/57%.
Subjective Data
-
Date of Service:
Date of Service: August 07, 2023
Chief Complaint: Pulmonary Follow Up and Dyspnea Follow Up
Subjective:
Anxious, depressed, short of breath, wheezing, no chest pain, bothered by her roommate who she states is demented
Review of Systems
General: Other (per HPI)
Objective Data
Data Reviewed
Vital Signs / I&O:
Vital Signs
Temp Pulse Resp BP Pulse Ox
97.8 F 76 18 150/84 95
08/07/23 07:25 08/07/23 08:24 08/07/23 07:25 08/07/23 08:24 08/07/23 07:25
Intake and Output
08/06/23 08/07/23 08/08/23
06:59 06:59 06:59
Intake Total 570 / 570
Balance 570 / 570
SaO2: 95
Physical Exam
General: Respiratory Distress (n) and Comfortable
HEENT: Normocephalic, Anicteric and Moist Mucous Membranes
Cardiovascular: Regular Rhythm
Respiratory: Wheeze ( diffuse expiratory), Crackles (n), Rhonchi (n), Non-Labored Respirations, Accessory Resp Muscle Use (n) and Stridor (n)
GI: Soft, Non Distended and Non Tender
Neurology: Awake, Alert and No Motor Deficits
Skin: Warm, Good Color, Cyanosis (n), Jaundice (n) and Rash (n)
Labs/Micro/Reports
Lab Data
08/07/23 06:36
08/07/23 06:36
[2023-08-07] MEDS: NSS (PRESERVATIVE FREE) 0.25 ML IV (10:51)
[2023-08-07] MEDS: ATIVAN 0.5 MG IV (10:51)
[2023-08-07] MEDS: NON-FORMULARY ITEM TOPICAL ×2 (10:52→11:01)
[2023-08-07 10:58] VITALS: BP 108/63
[2023-08-07] MEDS: DUONEB INH (11:11)
--- NOTE | 2023-08-07 11:44 | W.PN.HOSP.TC ---
Today's Communication/Plan
-
Was called to treat her panic attack this morning and was unaware that psychiatry wanted diazepam instead of lorazepam
Will make diazepam as needed
Avoid further lorazepam
Assessment / Plan
Assessment / Plan
Physical Exam
General: Anxious
HEENT: Normocephalic
Cardiovascular: S1-S2. RRR.
Respiratory: Crackles (bilateral), Non-Labored Respirations and Stridor (n)
GI: Soft and Non Distended. Positive bowel sounds.
Neurology: Awake and Alert
Skin: Warm and Dry
Assessment/Plan
Shortness of Breath
Cough
Sarcoidosis
-Avoid steroids as patient intolerant of steroids
-Levaquin 250 mg IV daily (monitor QTc)
-Duonebs scheduled
-Consult pulmonary, evaluation and recommendations appreciated
Recent Syncopal episodes
-Orthostatic vital signs negative on August 06, 2023
-Normal Saline 75 cc/hr
-Echocardiogram again unremarkable and compared to 06/26/2023
-Troponins negative
Stress/Anxiety
History of Anxiety
-Psychiatry consulted, recommendations appreciated: switched to prn Valium (instead of prn Ativan) as per psychiatry
Acute hypoxic respiratory insufficiency
Acute bronchitis
Fluid overload
Epigastric pain with elevated LFTs - LFTs now within normal limits
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
Hypertension - monitor vital signs. Continue home Losartan and Coreg.
Coronary disease with stents - Continue home Aspirin and Statin.
History of [place]
Stomach wall thickening
Hiatal hernia
Chronic biliary dilatation
Small volume ascites
Small bilateral pleural effusions
3.9 cm hepatic hemangioma in the right lobe of the liver
Chronic hypercalcemia
Hypothyroidism - Continue home Levothyroxine.
Asthma
Chronic kidney disease Stage 3 to 4
Renal cysts
Arthritis/fibromyalgia
GERD
Anxiety
Diverticulosis
Degenerative disc disease L4-L5
History of COVID-19
DVT Prophylaxis: Lovenox
Anticipated Discharge: Within 24 hours
Subjective/Interval History
-
Date of Service: August 07, 2023
Remains anxious and states 'I had a panic attack this morning'.
Objective Data
-
Labs:
Laboratory Results
08/07/23
06:36
WBC 5.8
Hgb 13.2
Hct 38.7
Plt Count 201
Sodium 136
Potassium 4.6
Chloride 111 H
Carbon Dioxide 19 L
BUN 25 H
Creatinine 1.6 H
Glucose 91
Calcium 9.8
Vital Signs:
Vital Signs
Temp Pulse Resp BP Pulse Ox
98.3 F 69 17 108/63 94
08/07/23 10:58 08/07/23 10:58 08/07/23 10:58 08/07/23 10:58 08/07/23 10:58
I&O
08/06/23 08/07/23 08/08/23
06:59 06:59 06:59
Intake Total 570 / 570
Balance 570 / 570
Review of Systems
-
Constitutional: Reports No Symptoms
EENT: Reports No Symptoms Reported
Respiratory: Reports Cough and Trouble Breathing
Psych: Reports Anxious
Physical Exam
-
General: Well Developed
HEENT: Neck Masses
Respiratory: Clear to Auscultation
Cardiac: Regular Rhythm
GI: Soft
[2023-08-07] MEDS: ZITHROMAX 250 MG PO (12:26)
[2023-08-07 15:22] VITALS: BP 135/82
[2023-08-07 18:09] VITALS: BMI 16.5
[2023-08-07] MEDS: TYLENOL 500 MG PO (18:13)
[2023-08-07 19:48] VITALS: BP 70/41
[2023-08-07] MEDS: ROBITUSSIN DM 10 ML PO (19:58)
[2023-08-07] MEDS: NON-FORMULARY ITEM 1 SPRAY TOPICAL (19:58)
[2023-08-07] MEDS: REFRESH EYE DROPS (PF) 1 DROPS BOTH EYES (19:59)
[2023-08-07] MEDS: COREG PO (20:09)
[2023-08-07] MEDS: NSS 500 IV (20:10)
[2023-08-07 22:40] VITALS: BP 129/58
[2023-08-07] MEDS: LIPITOR 80 MG PO (22:41)
[2023-08-07] MEDS: ERYTHROMYCIN 0.5% OPHTHALMIC OINTMENT 1 APPLIC BOTH EYES (22:41)
[2023-08-07] MEDS: COZAAR 50 MG PO (22:41)
[2023-08-08] VITALS (7 sets, daily range): BP systolic 93–141; BP diastolic 51–78
[2023-08-08] MEDS: ROBITUSSIN DM 10 ML PO ×5 (00:22→23:05)
--- NOTE | 2023-08-08 02:00 | PTCARENOTE ---
pt felt lightheaded and dizzy BP=74/44 manually. informed QUILLER MACHINE FIXER Abbey Prater- new orders for bolus. see MAR. pt rec'd 500ml bolus/ 2hr. recheck HA=663/58 P=64. No c/o dizziness at this time.
[2023-08-08] MEDS: SYNTHROID 50 MCG PO (03:48)
[2023-08-08 07:53] LABS: Hematocrit 39.5 % (37.0-47.0); Hemoglobin 12.6 g/dL (12.0-16.0); Mean Corp Hgb Conc. 31.9 g/dL (33.0-37.0); Mean Corpuscular Volume 87.8 fL (81.0-99.0); Mean Platelet Volume 10.6 fL (7.4-10.4); Platelet Count 184 10^3/uL (130-400); Red Cell Dist. Width 15.2 % (11.5-14.5)
[2023-08-08] MEDS: DUONEB 3 ML INH ×4 (08:10→19:21)
[2023-08-08] MEDS: PULMICORT 0.5 MG INH ×2 (08:10→19:21)
[2023-08-08 08:26] LABS: Blood Urea Nitrogen 29 mg/dl (7-17); Calcium 9.5 mg/dl (8.4-10.2); Carbon Dioxide 21 mmol/L (22-30); Chloride 112 mmol/L (98-107); Estimated Creatinine Clearance 20 ml/min; Glucose 88 mg/dl (70-99); Potassium 4.5 mmol/L (3.5-5.1); Sodium 136 mmol/L (135-145); eGFR 29.38
[2023-08-08] MEDS: COREG PO (09:16)
[2023-08-08] MEDS: TESSALON PERLES 200 MG PO ×2 (09:18→17:47)
[2023-08-08] MEDS: ZITHROMAX 250 MG PO (09:19)
[2023-08-08] MEDS: COZAAR 25 MG PO ×2 (09:19→19:50)
[2023-08-08] MEDS: REFRESH EYE DROPS (PF) BOTH EYES (09:20)
[2023-08-08] MEDS: NON-FORMULARY ITEM 1 SPRAY TOPICAL ×2 (09:21→23:06)
[2023-08-08] MEDS: HEPARIN SC ×2 (09:21→19:51)
--- NOTE | 2023-08-08 09:25 | W.PN.PUL.V3 ---
Today's Communication / Plan
-
Continue nebulizers
Wean oxygen
Increase activity
Empiric antibiotics
Anxiolytics per primary team
Assessment
-
Assessment: 73-year-old female with past med history of sarcoidosis, CAD s/p coronary stents, Evert, GERD and history of COPD with severe restrictive lung disease presents with multiple complaints including depression, weakness, cough and shortness
of breath. She also endorses weight loss. She says she is lost 16 pounds due to recent stress. CXR does not show any acute cardiopulmonary process. And there are stable advanced chronic changes likely related to her history of sarcoidosis. She
was admitted to the hospitalist service, started on DuoNebs, Levaquin, and continued on her budesonide 0.5 mg inhaled BID. Pulmonary service now consulted for additional management/recommendations.
Chronic medical conditions [employer]ERR[employer]IL[employer]: Pulmonary sarcoidosis, CAD s/p coronary stents, Hx of [place], HTN, anxiety, breast pain, Hx of costochondritis, GERD, Hx of COVID-19, hypothyroidism, COPD
Impression:
#Shortness of breath with paroxysmal coughing spells suspected to be due to sarcoidosis versus COPD flare - she believes that it feels more like the former
#Failure to thrive with dysphagia
#Depression, likely due to adjustment disorder given her recent life events
#Leukopenia � chronic
#Hx of pulmonary sarcoidosis (stage IV) on nebulized ICS at home
#Hypothyroidism
#Hypertension
#CKD III-IV
#Mild intermittent asthma.
Panic attacks
Plan:
Pulmonary status has improved slightly-continues with wheezing
Supplemental oxygen as needed-will assess discharge supplemental oxygen needs prior to discharge
Aspiration Precautions
Steroids recommended-patient refused-states she is intolerant in the past-she states her intolerance is 'skin bleeding'
Continue nebulizers
Budesonide nebulizers
Tessalon pearls as needed
Cultures reviewed
Sputum culture unrevealing-poor specimen
Empiric antibiotics-on azithromycin 250 mg daily-finish 5 day course
Anxiolytics for panic attacks per primary team
DVT prophylaxis-on subcutaneous heparin
Outpatient pulmonary follow-up
Data:
CXR 08-05-2023:
1. No acute cardiopulmonary process.
2. Stable appearance of advanced chronic changes related to sarcoidosis.
Outpatient [facility] Data:
PFT:
������ [place] 04/13/23: FVC 1.47/49%, FEV1 0.63/20%, ratio 43. When compared to 2019, this is stable
�������[place] 06/14/18 reveals FVC 1.57/49%, FEV1 0.65/27% ratio 41 there is a 24% improvement in the FEV1 following bronchodilator, when compared to spirometry FVC has dropped from 2.38 to 1.57.
�������PFT 2013 reveals FVC 2.38/71%, FEV1 0.86/34% ratio 36, TLC 4.29/85% and DLCO 14.1/57%.
Subjective Data
-
Date of Service:
Date of Service: August 08, 2023
Chief Complaint: Pulmonary Follow Up and Dyspnea Follow Up
Subjective:
Remains quite anxious, still has wheezing, does not want to take steroids, minimal cough, no chest pain or abdominal pain
Review of Systems
General: Other (Per HPI)
Objective Data
Data Reviewed
Vital Signs / I&O:
Vital Signs
Temp Pulse Resp BP Pulse Ox
100.0 F 62 24 96/54 96
08/08/23 08:38 08/08/23 08:38 08/08/23 08:38 08/08/23 09:16 08/08/23 08:38
Intake and Output
08/07/23 08/08/23 08/09/23
06:59 06:59 06:59
Intake Total 570 / 570 1400 / 1400
Balance 570 / 570 1400 / 1400
SaO2: 96
Physical Exam
General: Respiratory Distress (n) and Comfortable
HEENT: Normocephalic, Anicteric and Moist Mucous Membranes
Cardiovascular: Regular Rhythm
Respiratory: Wheeze ( diffuse expiratory), Crackles (n), Rhonchi (n), Non-Labored Respirations, Accessory Resp Muscle Use (n) and Stridor (n)
GI: Soft, Non Distended and Non Tender
Neurology: Awake, Alert and No Motor Deficits
Skin: Warm, Good Color, Cyanosis (n), Jaundice (n) and Rash (n)
Labs/Micro/Reports
Lab Data
08/08/23 07:37
08/08/23 07:37
--- NOTE | 2023-08-08 10:20 | CM ---
Patient seen at bedside. Patient requested list of PCP options and list provided to patient. Patient indicated that she did not feel that she need VN at discharge. CM will continue to follow for discharge planning needs.
Plan; home with ;pending functional assessments.
--- NOTE | 2023-08-08 10:53 | W.PN.UPDATE ---
Update Note
Progress Note Update
Patient seen, chart reviewed, discussed with Dr. Wakefield. Client continues to have intermittent anxiety related to her current life stressors which includes the abrupt lose of her home of 20 years, to living with her son in an
'uncomfortable'environment, and where she will go next and stay for good. We spend a good deal of time discussing it is not abnormal to feel stressed after all of these recent life stressors. I have highly recommended she consider a therapist to
help her process and heal. Information for LVF provided. I do not feel at this time she needs to start an antidepressant but may consider in the future as an outpatient. She admits she is so sensitive to medications she would be weary to want to
take something daily but did feel the Ativan she received the other day was very helpful. Could consider a low dose of Ativan (Valium previously requested but did well with Ativan here), up to BID PRN.
Impression/Plan: Intermittent anxiety secondary to recent stressors - low dose of Ativan as this has a shorter half life with less concern for over sedation, up to BID PRN.
[2023-08-08] MEDS: ASPIR LOW (ENTERIC COATED) 81 MG PO (10:54)
--- NOTE | 2023-08-08 11:08 | W.PN.HOSP.TC ---
Today's Communication/Plan
-
Still with congestion and bronchospasm
Will try and optimize her anxiety meds spoke to psychiatry
Assessment / Plan
Assessment / Plan
Physical Exam
General: Anxious
HEENT: Normocephalic
Cardiovascular: S1-S2. RRR.
Respiratory: Crackles (bilateral), Non-Labored Respirations and Stridor (n)
GI: Soft and Non Distended. Positive bowel sounds.
Neurology: Awake and Alert
Skin: Warm and Dry
Assessment/Plan
Shortness of Breath
Cough
Sarcoidosis
-Avoid steroids as patient intolerant of steroids
-Levaquin 250 mg IV daily (monitor QTc) changed to Zithromax per pulmonary x 5 days
-Duonebs scheduled
-Consult pulmonary, evaluation and recommendations appreciated
Recent Syncopal episodes
-Orthostatic vital signs negative on August 06, 2023
-Normal Saline 75 cc/hr
-Echocardiogram again unremarkable and compared to 06/26/2023
-Troponins negative
Stress/Anxiety
History of Anxiety
-Psychiatry consulted, recommendations appreciated: Originally thought was to place him diazepam but did better with lorazepam although shorter acting will place on twice daily 0.25 mg and patient requests 0.5 mg IV at bedtime tonight only and did
discuss that we cannot keep giving her in the IV form going forward. She had been on 0.25 at at bedtime/spoke to psychiatry they will follow her up at [facility] for possible depressive management
Acute hypoxic respiratory insufficiency
Acute bronchitis
Fluid overload
Epigastric pain with elevated LFTs - LFTs now within normal limits
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
Hypertension - monitor vital signs. Continue home Losartan and Coreg.
Coronary disease with stents - Continue home Aspirin and Statin.
History of [place]
Stomach wall thickening
Hiatal hernia
Chronic biliary dilatation
Small volume ascites
Small bilateral pleural effusions
3.9 cm hepatic hemangioma in the right lobe of the liver
Chronic hypercalcemia
Hypothyroidism - Continue home Levothyroxine.
Asthma
Chronic kidney disease Stage 3 to 4
Renal cysts
Arthritis/fibromyalgia
GERD
Anxiety
Diverticulosis
Degenerative disc disease L4-L5
History of COVID-19
DVT Prophylaxis: Lovenox
Anticipated Discharge: Within 24 hours
Subjective/Interval History
-
Date of Service: August 08, 2023
Remains quite anxious continues to have periods of shortness of breath and bronchospasm congestion.
Objective Data
-
Labs:
Laboratory Results
08/08/23
07:37
WBC 6.0
Hgb 12.6
Hct 39.5
Plt Count 184
Sodium 136
Potassium 4.5
Chloride 112 H
Carbon Dioxide 21 L
BUN 29 H
Creatinine 1.8 H
Glucose 88
Calcium 9.5
Vital Signs:
Vital Signs
Temp Pulse Resp BP Pulse Ox
100.0 F 62 24 96/54 96
08/08/23 08:38 08/08/23 08:38 08/08/23 08:38 08/08/23 09:16 08/08/23 09:25
I&O
08/07/23 08/08/23 08/09/23
06:59 06:59 06:59
Intake Total 570 / 570 1400 / 1400
Balance 570 / 570 1400 / 1400
Review of Systems
-
History Source: Patient
Constitutional: Reports Fatigue and Weakness
Respiratory: Reports Trouble Breathing and Wheezing
Psych: Reports Anxious
Physical Exam
-
General: Cachectic
HEENT: Normocephalic
Respiratory: Wheezes and Rhonchi
Cardiac: Regular Rhythm
GI: Soft
Neuro: Awake and Alert
Psych: Anxious
Data Reviewed
-
Total Time Spent with Patient (in minutes): 45
Labs: Labs Reviewed by me
[2023-08-08] MEDS: ATIVAN 0.25 MG PO ×2 (12:17→19:49)
--- NOTE | 2023-08-08 13:33 | PN.CDI ---
CDI
- -
CDI:
Physician Documentation Request
Admit Date: 08/05/23 18:29
Dear Doctor Ashu,
08/06 RD note states ' pt appears to have lost 8 lbs (7.4% wt change, < 2 months) significant....during RD visit today was able to observe appearance of moderate depression uatsdin, severe clavicle protrusion and visible ribs. Due to weight loss and
observation of fat/muscle loss, pt meeting criteria for severe protein calorie malnutrition (ASPEN/AND guidelines, chronic illness)'
ED exam reports the pt is borderline cachectic
Ht: 5 ft 5.5 inches
Wt: 100 lb 12.8 oz
BMI : 16.5
Based on the information, which of the following most accurately represents the patient's nutritional status?
Malnutrition ( moderate or severe)
Cachexia without malnutrition
Underweight without malnutrition
No nutritional deficiency
Other (please specify)
[place] Criteria (ACP Hospitalist 2017)
2 or more criteria must be present for either
non severe or severe malnutrition
Note that the criteria differs related to the
presence of an acute or chronic illness
Acute Illness Chronic Illness
Energy Intake Non Severe: <75% for >7 days Non Severe: <75% for >1 month
Severe: <50% for >5 days Severe: <75% for >1 month
Weight Loss Non Severe: 1-2% over 1 week Non Severe: 5% over 1 month
5% over 1 month 7.5% over 3 months
7.5% over 3 months 10% over 6 months
1 year N/A 20% over 1 year
Severe: >2% over 1 week Severe: >5% over 1 month
>5% over 1 month >7.5% over 3 months
>7.5% over 3 months >10% over 6 months
1 year N/A >20% over 1 year
Body Fat Non Severe: Mild Decrease Non Severe: Mild Loss
Severe: Moderate Decrease Severe: Severe Loss
Muscle Mass Non Severe: Mild Decrease Non Severe: Mild Loss
Severe: Moderate Decrease Severe: Severe Loss
Fluid Accumulation Non Severe: Mild Accumulation Non Severe: Mild Accumulation
Severe: Moderate to severe Severe: Moderate to severe
accumulation accumulation
Reduced Reclamation Worker Strength Non Severe: N/A Non Severe: N/A
Severe: Measurably reduced Severe: Measurably reduced
Additional criteria that can be used to Determine if Mild or Moderate Malnutrition (Merck Manual 2018)
Mild Moderate Severe
Albumin gm/dl <3.0 gm/dl <2.5 gm/dl <2.0 gm/dl
Pre Albumin mg/dl <15 gm/dl <10 mg/dl <5.0 mg/dl
BMI <18.5 <17 <16
Use of terms such as suspected, likely, concern for, or probable (associated with a specific diagnosis that is being evaluated, monitored, or treated as if it exists) are acceptable and can be coded in the inpatient setting, when documented at the
time of discharge.
Thank you,
Leslie Penaloza RN, BSN
CDI Specialist
tiger text
Please use your independent medical judgment in providing your response.
[2023-08-08] MEDS: COREG 12.5 MG PO (19:50)
[2023-08-08] MEDS: ERYTHROMYCIN 0.5% OPHTHALMIC OINTMENT 1 APPLIC BOTH EYES (23:05)
[2023-08-08] MEDS: REFRESH EYE DROPS (PF) 1 DROPS BOTH EYES (23:05)
[2023-08-08] MEDS: NSS (PRESERVATIVE FREE) 0.25 ML IV (23:07)
[2023-08-08] MEDS: TESSALON PERLES PO ×2 (23:07→23:54)
[2023-08-08] MEDS: LIPITOR 80 MG PO (23:07)
[2023-08-08] MEDS: ATIVAN 0.5 MG IV (23:08)
[2023-08-08] MEDS: OCEAN, SALINE MIST 1 SPRAYS NASAL (23:13)
[2023-08-09 03:14] VITALS: BP 115/68
[2023-08-09] MEDS: SYNTHROID 50 MCG PO (07:08)
[2023-08-09 07:30] VITALS: BP 137/74
[2023-08-09 08:15] LABS: Hematocrit 39.8 % (37.0-47.0); Mean Corp Hgb Conc. 32.7 g/dL (33.0-37.0); Mean Corpuscular Hgb 28.5 pg (27.0-31.0); Mean Corpuscular Volume 87.3 fL (81.0-99.0); Mean Platelet Volume 10.5 fL (7.4-10.4); Platelet Count 240 10^3/uL (130-400); Red Blood Cell Count 4.56 10^6/uL (4.20-5.40); Red Cell Dist. Width 15.3 % (11.5-14.5); White Blood Cell Count 5.5 10^3/uL (4.8-10.8)
[2023-08-09] MEDS: PULMICORT 0.5 MG INH ×2 (08:15→20:47)
[2023-08-09] MEDS: DUONEB 3 ML INH ×4 (08:15→20:47)
[2023-08-09 08:55] LABS: Blood Urea Nitrogen 25 mg/dl (7-17); Calcium 10.4 mg/dl (8.4-10.2); Carbon Dioxide 21 mmol/L (22-30); Chloride 111 mmol/L (98-107); Estimated Creatinine Clearance 21 ml/min; Glucose 88 mg/dl (70-99); Potassium 4.6 mmol/L (3.5-5.1); Sodium 140 mmol/L (135-145); eGFR 31.47
--- NOTE | 2023-08-09 08:59 | W.PN.PUL.V3 ---
Today's Communication / Plan
-
Continue nebulizers
Wean oxygen
Increase activity
Anxiolytics
Finite course of antibiotics
Assessment
-
Assessment: 73-year-old female with past med history of sarcoidosis, CAD s/p coronary stents, Evert, GERD and history of COPD with severe restrictive lung disease presents with multiple complaints including depression, weakness, cough and shortness
of breath. She also endorses weight loss. She says she is lost 16 pounds due to recent stress. CXR does not show any acute cardiopulmonary process. And there are stable advanced chronic changes likely related to her history of sarcoidosis. She
was admitted to the hospitalist service, started on DuoNebs, Levaquin, and continued on her budesonide 0.5 mg inhaled BID. Pulmonary service now consulted for additional management/recommendations.
Chronic medical conditions [employer] M[employer]: Pulmonary sarcoidosis, CAD s/p coronary stents, Hx of [place], HTN, anxiety, breast pain, Hx of costochondritis, GERD, Hx of COVID-19, hypothyroidism, COPD
Impression:
#Shortness of breath with paroxysmal coughing spells suspected to be due to sarcoidosis versus COPD flare - she believes that it feels more like the former
#Asthma-moderate persistent with acute exacerbation
#Failure to thrive with dysphagia
#Depression, likely due to adjustment disorder given her recent life events
#Leukopenia � chronic
#Hx of pulmonary sarcoidosis (stage IV) on nebulized ICS at home
#Hypothyroidism
#Hypertension
#CKD III-IV
#Mild intermittent asthma.
Panic attacks
Plan:
Continues to have significant wheezing-perhaps somewhat improved-suspect she always has some degree of wheezing
Continue supplemental oxygen as needed-will assess discharge supplemental oxygen needs prior to discharge
Aspiration precautions per protocol
Steroids recommended-patient refused-states she is intolerant in the past-she states her intolerance is 'skin bleeding'
Nebulizers continue including budesonide
Tessalon continues as needed
Cultures reviewed
Sputum culture unrevealing-poor specimen
Empiric antibiotics-on azithromycin 250 mg daily-finish 5 day course
Anxiolytics for panic attacks per primary team
DVT prophylaxis-on subcutaneous heparin
Outpatient pulmonary [id number] saw Dr. Nj 06/15/2023
Consider Biologics such as Dupixent for asthma moderate persistent with recurrent exacerbations for better control as patient refuses steroids-skin necrosis/bleeding. Patient has recurrent exacerbations that would require intravenous or oral
steroids if she would allow
Data:
CXR 08-05-2023:
1. No acute cardiopulmonary process.
2. Stable appearance of advanced chronic changes related to sarcoidosis.
Outpatient [facility] Data:
PFT:
������ [place] 04/13/23: FVC 1.47/49%, FEV1 0.63/20%, ratio 43. When compared to 2018, this is stable
�������[place] 06/14/18 reveals FVC 1.57/49%, FEV1 0.65/27% ratio 41 there is a 24% improvement in the FEV1 following bronchodilator, when compared to spirometry FVC has dropped from 2.38 to 1.57.
�������PFT 2013 reveals FVC 2.38/71%, FEV1 0.86/34% ratio 36, TLC 4.29/85% and DLCO 14.1/57%.
Subjective Data
-
Date of Service:
Date of Service: August 09, 2023
Chief Complaint: Pulmonary Follow Up and Dyspnea Follow Up
Subjective:
Did not sleep well, anxious, still with some wheezing, overall she feels slightly improved from a respiratory perspective, no chest pain, has minimal cough and no abdominal pain
Review of Systems
General: Other (Per HPI)
Objective Data
Data Reviewed
Vital Signs / I&O:
Vital Signs
Temp Pulse Resp BP Pulse Ox
98.4 F 72 16 137/74 95
08/09/23 07:30 08/09/23 08:21 08/09/23 08:21 08/09/23 07:30 08/09/23 08:21
Intake and Output
08/08/23 08/09/23 08/10/23
06:59 06:59 06:59
Intake Total 1400 / 1400 480 / 480
Balance 1400 / 1400 480 / 480
SaO2: 95
Physical Exam
General: Respiratory Distress (n) and Comfortable
HEENT: Normocephalic, Anicteric and Moist Mucous Membranes
Cardiovascular: Regular Rhythm
Respiratory: Wheeze ( diffuse expiratory), Crackles (n), Rhonchi (n), Non-Labored Respirations, Accessory Resp Muscle Use (n) and Stridor (n)
GI: Soft, Non Distended and Non Tender
Neurology: Awake, Alert and No Motor Deficits
Skin: Warm, Good Color, Cyanosis (n), Jaundice (n) and Rash (n)
Labs/Micro/Reports
Lab Data
08/09/23 07:37
08/09/23 07:37
[2023-08-09] MEDS: COREG 12.5 MG PO ×2 (09:00→21:07)
[2023-08-09] MEDS: COZAAR 25 MG PO (09:00)
[2023-08-09] MEDS: NON-FORMULARY ITEM 1 SPRAY TOPICAL ×2 (09:00→21:10)
[2023-08-09] MEDS: ASPIR LOW (ENTERIC COATED) 81 MG PO (09:00)
[2023-08-09] MEDS: ZITHROMAX 250 MG PO (09:00)
[2023-08-09] MEDS: TESSALON PERLES 200 MG PO ×2 (09:00→15:48)
[2023-08-09] MEDS: REFRESH EYE DROPS (PF) 1 DROPS BOTH EYES ×2 (09:00→21:07)
[2023-08-09] MEDS: ATIVAN 0.25 MG PO ×2 (09:00→21:08)
[2023-08-09] MEDS: HEPARIN 5000 UNITS SC ×2 (09:06→21:08)
[2023-08-09 11:33] VITALS: BP 105/61
--- NOTE | 2023-08-09 11:34 | CM ---
entry level manager reviewed patient's chart and met with patient and patient wants to return to home home with her sister, patient is refusing skilled placement.
Plan; Home to sisters house, patient has declined the need for visiting nurse services.
--- NOTE | 2023-08-09 11:48 | W.PN.HOSP.TC ---
Addendum entered and electronically signed by Fernando Wakefield MD 08/09/23 12:40:
Severe protein calorie malnutrition from chronic illness
Original Note:
Today's Communication/Plan
-
Should be ready for discharge tomorrow
Will order home oxygen screen in a.m.
I would discontinue losartan as BP remains low
Increase activity/if remains weak and deconditioned may need rehab
Assessment / Plan
Assessment / Plan
Physical Exam
General: Anxious/depressed
HEENT: Normocephalic
Cardiovascular: S1-S2. RRR.
Respiratory: Crackles (bilateral), Non-Labored Respirations and Stridor (n)
GI: Soft and Non Distended. Positive bowel sounds.
Neurology: Awake and Alert
Skin: Warm and Dry
Assessment/Plan
Shortness of Breath
Cough
Sarcoidosis
-Avoid steroids as patient intolerant of steroids
-Levaquin 250 mg IV daily (monitor QTc) changed to Zithromax per pulmonary x 5 days last day will be August 09
-Duonebs scheduled/budesonide which she also has at home
-Consult pulmonary, evaluation and recommendations appreciated
Recent Syncopal episodes
-Orthostatic vital signs negative on August 06, 2023
-Normal Saline 75 cc/hr discontinued
-Echocardiogram again unremarkable and compared to 06/26/2023
-Troponins negative
Stress/Anxiety
History of Anxiety
-Psychiatry consulted, recommendations appreciated: Originally thought was to place him diazepam but did better with lorazepam although shorter acting will place on twice daily 0.25 mg and patient requests 0.5 mg IV at bedtime tonight only and did
discuss that we cannot keep giving her in the IV form going forward. She had been on 0.25 at at bedtime/spoke to psychiatry they will follow her up at [facility] for possible depressive management
Acute hypoxic respiratory insufficiency
Acute bronchitis
Fluid overload
Epigastric pain with elevated LFTs - LFTs now within normal limits
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
Hypertension - monitor vital signs. Continue home Losartan and Coreg.
Coronary disease with stents - Continue home Aspirin and Statin.
History of [place]
Stomach wall thickening
Hiatal hernia
Chronic biliary dilatation
Small volume ascites
Small bilateral pleural effusions
3.9 cm hepatic hemangioma in the right lobe of the liver
Chronic hypercalcemia
Hypothyroidism - Continue home Levothyroxine.
Asthma
Chronic kidney disease Stage 3 to 4
Renal cysts
Arthritis/fibromyalgia
GERD
Anxiety
Diverticulosis
Degenerative disc disease L4-L5
History of COVID-19
DVT Prophylaxis: Lovenox
Anticipated Discharge: Within 24 hours
Subjective/Interval History
-
Date of Service: August 09, 2023
Remains anxious' and desponded/off oxygen/complains of being tired did receive a dosage of IV lorazepam for sleep last night
Objective Data
-
Labs:
Laboratory Results
08/09/23
07:37
WBC 5.5
Hgb 13.0
Hct 39.8
Plt Count 240 D
Sodium 140
Potassium 4.6
Chloride 111 H
Carbon Dioxide 21 L
BUN 25 H
Creatinine 1.7 H
Glucose 88
Calcium 10.4 H
Vital Signs:
Vital Signs
Temp Pulse Resp BP Pulse Ox
98.3 F 71 22 105/61 95
08/09/23 11:33 08/09/23 11:33 08/09/23 11:33 08/09/23 11:33 08/09/23 11:33
I&O
08/08/23 08/09/23 08/10/23
06:59 06:59 06:59
Intake Total 1400 / 1400 480 / 480
Balance 1400 / 1400 480 / 480
Review of Systems
-
Unable to obtain full review of systems at this time due to: Other (Emotionally labile)
Constitutional: Reports Sleep Disturbance and Weakness
Respiratory: Reports Cough and Wheezing
Psych: Reports Depressed and Sad
Physical Exam
-
General: Appears Chronically Ill
HEENT: Normocephalic
Respiratory: Wheezes and Rhonchi
Cardiac: Regular Rhythm
GI: Soft and Nontender
Psych: Anxious
Data Reviewed
-
Total Time Spent with Patient (in minutes): 45
Labs: Labs Reviewed by me (Creatinine trending down/calcium borderline elevation at 10.4)
--- NOTE | 2023-08-09 14:27 | W.PN.UPDATE ---
Update Note
Progress Note Update
patient seen chart reviewed. spoke with nursing. patient shared her disappointment and even betrayal by her landlords who had told her she says repeatedly over the twenty years she resided in her in law suite that she was like family to them and
she'd always have a place there. she feels completely at sea . while she will live w her sister who came to visit while i was talking to her she worries that she does not know how long she can be w sister and fears it will not be easy to find a new
place. while i was talking to her she expressed to israel gonzales she was sob and concerned she was wheezing. nursing felt this was secondary to anxiety. offered support. did not make any changes in ativan except to change to po at hs instead of
iv. will check in w her tomorrow.
[2023-08-09 15:39] VITALS: BP 107/65
[2023-08-09] MEDS: LIPITOR 80 MG PO (21:09)
[2023-08-09] MEDS: TYLENOL 500 MG PO (21:10)
[2023-08-09] MEDS: ERYTHROMYCIN 0.5% OPHTHALMIC OINTMENT 1 APPLIC BOTH EYES (21:11)
[2023-08-09 23:22] VITALS: BP 99/46
[2023-08-10 03:17] VITALS: BP 127/74
[2023-08-10] MEDS: SYNTHROID 50 MCG PO (05:33)
[2023-08-10] MEDS: DUONEB 3 ML INH ×2 (07:02→11:10)
[2023-08-10] MEDS: PULMICORT 0.5 MG INH (07:02)
[2023-08-10 07:15] LABS: Hematocrit 37.6 % (37.0-47.0); Hemoglobin 12.4 g/dL (12.0-16.0); Mean Corpuscular Hgb 28.4 pg (27.0-31.0); Mean Corpuscular Volume 86.2 fL (81.0-99.0); Mean Platelet Volume 9.7 fL (7.4-10.4); Platelet Count 255 10^3/uL (130-400); Red Blood Cell Count 4.36 10^6/uL (4.20-5.40); Red Cell Dist. Width 14.9 % (11.5-14.5); White Blood Cell Count 4.6 10^3/uL (4.8-10.8)
[2023-08-10 08:29] LABS: Blood Urea Nitrogen 24 mg/dl (7-17); Calcium 10.3 mg/dl (8.4-10.2); Carbon Dioxide 20 mmol/L (22-30); Chloride 113 mmol/L (98-107); Estimated Creatinine Clearance 23 ml/min; Glucose 91 mg/dl (70-99); Potassium 4.4 mmol/L (3.5-5.1); Sodium 138 mmol/L (135-145); eGFR 33.84
[2023-08-10] MEDS: ZITHROMAX 250 MG PO (08:30)
[2023-08-10] MEDS: ASPIR LOW (ENTERIC COATED) 81 MG PO (08:30)
[2023-08-10] MEDS: REFRESH EYE DROPS (PF) 1 DROPS BOTH EYES (08:31)
[2023-08-10] MEDS: COREG 12.5 MG PO (08:31)
[2023-08-10] MEDS: ATIVAN 0.25 MG PO (08:32)
[2023-08-10] MEDS: HEPARIN 5000 UNITS SC (08:32)
[2023-08-10 08:34] VITALS: BP 121/61
[2023-08-10] MEDS: NON-FORMULARY ITEM 1 SPRAY TOPICAL (08:34)
--- NOTE | 2023-08-10 09:56 | W.PN.PUL.V3 ---
Today's Communication / Plan
-
Wean oxygen
Increase activity
Continue nebulizers
Stable from a pulmonary perspective for proposed discharge
Outpatient pulmonary follow-up
Assessment
-
Assessment: 73-year-old female with past med history of sarcoidosis, CAD s/p coronary stents, [place], GERD and history of COPD with severe restrictive lung disease presents with multiple complaints including depression, weakness, cough and shortness
of breath. She also endorses weight loss. She says she is lost 16 pounds due to recent stress. CXR does not show any acute cardiopulmonary process. And there are stable advanced chronic changes likely related to her history of sarcoidosis. She
was admitted to the hospitalist service, started on DuoNebs, Levaquin, and continued on her budesonide 0.5 mg inhaled BID. Pulmonary service now consulted for additional management/recommendations.
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
Impression:
#Shortness of breath with paroxysmal coughing spells suspected to be due to sarcoidosis versus COPD flare - she believes that it feels more like the former
#Asthma-moderate persistent with acute exacerbation
#Failure to thrive with dysphagia
#Depression, likely due to adjustment disorder given her recent life events
#Leukopenia � chronic
#Hx of pulmonary sarcoidosis (stage IV) on nebulized ICS at home
#Hypothyroidism
#Hypertension
#CKD III-IV
#Mild intermittent asthma.
Panic attacks
Plan:
Respiratory status is relatively stable-continues to have wheezing and will likely have it for quite some time
Assess discharge supplemental oxygen needs
Aspiration precautions per protocol
Steroids recommended-patient refused-states she is intolerant in the past-she states her intolerance is 'skin bleeding'
Nebulizers continue including budesonide-continue as an outpatient
Tessalon continues as needed
Cultures reviewed
Sputum culture unrevealing-poor specimen
Empiric antibiotics-on azithromycin 250 mg daily-finish 5 day course
Anxiolytics for panic attacks per primary team
Psychiatry following-correspondence reviewed
DVT prophylaxis-on subcutaneous heparin
Outpatient pulmonary [id number] saw Dr. Nj 06/15/2023
Consider Biologics such as Dupixent for asthma moderate persistent with recurrent exacerbations for better control as patient refuses steroids-skin necrosis/bleeding. Patient has recurrent exacerbations that would require intravenous or oral
steroids if she would allow
Discussed the use of Biologics on several occasions during this hospitalizations with the patient including reviewing benefits and risks
Data:
CXR 08-05-2023:
1. No acute cardiopulmonary process.
2. Stable appearance of advanced chronic changes related to sarcoidosis.
Outpatient [facility] Data:
PFT:
������ [facility] 04/13/23: FVC 1.47/49%, FEV1 0.63/20%, ratio 43. When compared to 2018, this is stable
�������[facility] 06/14/18 reveals FVC 1.57/49%, FEV1 0.65/27% ratio 41 there is a 24% improvement in the FEV1 following bronchodilator, when compared to spirometry FVC has dropped from 2.38 to 1.57.
�������PFT 2013 reveals FVC 2.38/71%, FEV1 0.86/34% ratio 36, TLC 4.29/85% and DLCO 14.1/57%.
Subjective Data
-
Date of Service:
Date of Service: August 10, 2023
Chief Complaint: Pulmonary Follow Up and Dyspnea Follow Up
Subjective:
Still anxious, did not sleep well, still complains of wheezing, no chest pain or abdominal pain or productive cough
Review of Systems
General: Other (Per HPI)
Objective Data
Data Reviewed
Vital Signs / I&O:
Vital Signs
Temp Pulse Resp BP Pulse Ox
97.9 F 60 20 121/61 96
08/10/23 08:34 08/10/23 08:34 08/10/23 08:34 08/10/23 08:34 08/10/23 08:34
Intake and Output
08/09/23 08/10/23 08/11/23
06:59 06:59 06:59
Intake Total 480 / 480 840 / 840
Balance 480 / 480 840 / 840
SaO2: 96
Physical Exam
General: Respiratory Distress (n) and Comfortable
HEENT: Normocephalic, Anicteric and Moist Mucous Membranes
Cardiovascular: Regular Rhythm
Respiratory: Wheeze ( diffuse expiratory), Crackles (n), Rhonchi (n), Non-Labored Respirations, Accessory Resp Muscle Use (n) and Stridor (n)
GI: Soft, Non Distended and Non Tender
Neurology: Awake, Alert and No Motor Deficits
Skin: Warm, Good Color, Cyanosis (n), Jaundice (n) and Rash (n)
Labs/Micro/Reports
Lab Data
08/10/23 07:02
08/10/23 07:02
--- NOTE | 2023-08-10 10:27 | W.DS.TRANS ---
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
-
Discharge Instructions:
Discharge Diagnosis/Procedures Sarcoidosis
Asthmatic bronchitis
Anxiety disorder
Diet As tolerated
Activity As tolerated
Instructions:
Stand-Alone Forms:
Changes to Home Medications: Yes
Discharge Medications:
DC Medications w/original date entered in [employer]
budesonide 0.5 mg/2 mL suspension for nebulization (Pulmicort) 0.5 mg inhalation R BID Lung/Breathing Issues 11/09/20
acetaminophen 500 mg tablet (Tylenol Extra Strength) 500 mg PO DAILYPRN PRN mild pain 03/03/23
atorvastatin 80 mg tablet 80 mg PO HS High Cholesterol 03/03/23
erythromycin 5 mg/gram (0.5 %) eye ointment 1 applic BOTH EYES HS Eye Condition 03/03/23
levalbuterol tartrate 45 mcg/actuation aerosol inhaler (Xopenex HFA) 2 inh inhalation R Q6HPRN PRN sob 03/03/23
levothyroxine 50 mcg tablet 50 mcg PO DAILY Thyroid 03/03/23
lorazepam 0.5 mg tablet 0.25 mg PO HSPRN PRN anxiety 03/03/23
losartan 25 mg tablet 25 mg PO DAILY Blood Pressure 03/03/23
losartan 50 mg tablet 50 mg PO HS Blood pressure 03/03/23
peg 400-propylene glycol (PF) 0.4 %-0.3 % eye drops in a dropperette (Systane (PF)) 1 drp BOTH EYES BID Eye Condition 03/03/23
aspirin 81 mg tablet,delayed release 81 mg PO DAILY Blood clot prevention/tx ##0 03/05/23
ipratropium 0.5 mg-albuterol 3 mg (2.5 mg base)/3 mL nebulization soln 3 ml inhalation R QID 04/06/23
nitroglycerin 0.4 mg sublingual tablet 0.4 mg sublingual [id number] PRN chest pain 04/06/23
carvedilol 12.5 mg tablet 12.5 mg PO BID Blood pressure #60 tabs 04/10/23
levofloxacin 250 mg tablet 250 mg PO DAILY Infection #5 tabs 04/10/23
hypochlorous acid 0.01 %-sodium chloride topical spray (Avenova) 1 spray topical BID both eyes 08/05/23
omeprazole 40 mg capsule,delayed release 40 mg PO DAILYPRN PRN gerd 08/05/23
lorazepam 0.5 mg tablet 0.25 mg (1/2 x 0.5 mg) PO BID #20 tabs 08/10/23
lorazepam 0.5 mg tablet 0.5 mg PO HS #10 tabs 08/10/23
Home Medication Changes
lorazepam 0.5 mg tablet 0.25 mg (1/2 x 0.5 mg) PO BID #20 tabs 08/10/23
lorazepam 0.5 mg tablet 0.5 mg PO HS #10 tabs 08/10/23
Pending Results: No
Total time spent discharging patient (in min): 38
--- NOTE | 2023-08-10 11:21 | CM ---
Chart reviewed and patient has been cleared for discharge to home with sister, per patient her sister will transport her to her home.
Plan; Home with sister.
[2023-08-10 11:54] VITALS: BP 103/58
--- NOTE | 2023-08-10 12:13 | W.DS.TRANS ---
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
-
Discharge Instructions:
Discharge Diagnosis/Procedures Sarcoidosis
Asthmatic bronchitis
Anxiety disorder
Diet As tolerated
Activity As tolerated
Instructions:
Stand-Alone Forms:
Changes to Home Medications: No
Discharge Medications:
DC Medications w/original date entered in [employer]
budesonide 0.5 mg/2 mL suspension for nebulization (Pulmicort) 0.5 mg inhalation R BID Lung/Breathing Issues 11/09/20
acetaminophen 500 mg tablet (Tylenol Extra Strength) 500 mg PO DAILYPRN PRN mild pain 03/03/23
atorvastatin 80 mg tablet 80 mg PO HS High Cholesterol 03/03/23
erythromycin 5 mg/gram (0.5 %) eye ointment 1 applic BOTH EYES HS Eye Condition 03/03/23
levalbuterol tartrate 45 mcg/actuation aerosol inhaler (Xopenex HFA) 2 inh inhalation R Q6HPRN PRN sob 03/03/23
levothyroxine 50 mcg tablet 50 mcg PO DAILY Thyroid 03/03/23
lorazepam 0.5 mg tablet 0.25 mg PO HSPRN PRN anxiety 03/03/23
peg 400-propylene glycol (PF) 0.4 %-0.3 % eye drops in a dropperette (Systane (PF)) 1 drp BOTH EYES BID Eye Condition 03/03/23
aspirin 81 mg tablet,delayed release 81 mg PO DAILY Blood clot prevention/tx ##0 03/05/23
ipratropium 0.5 mg-albuterol 3 mg (2.5 mg base)/3 mL nebulization soln 3 ml inhalation R QID 04/06/23
nitroglycerin 0.4 mg sublingual tablet 0.4 mg sublingual [id number] PRN chest pain 04/06/23
carvedilol 12.5 mg tablet 12.5 mg PO BID Blood pressure #60 tabs 04/10/23
hypochlorous acid 0.01 %-sodium chloride topical spray (Avenova) 1 spray topical BID both eyes 08/05/23
omeprazole 40 mg capsule,delayed release 40 mg PO DAILYPRN PRN gerd 08/05/23
lorazepam 0.5 mg tablet 0.25 mg (1/2 x 0.5 mg) PO BID #20 tabs 08/10/23
lorazepam 0.5 mg tablet 0.5 mg PO HS #10 tabs 08/10/23
Home Medication Changes
lorazepam 0.5 mg tablet 0.25 mg (1/2 x 0.5 mg) PO BID #20 tabs 08/10/23
lorazepam 0.5 mg tablet 0.5 mg PO HS #10 tabs 08/10/23
Pending Results: No
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
== END 2023-08-10 12:32 | disposition home or self-care (01) | DRG 190 ==
LOC: 4 WEST ACU 18:29
PROVIDERS: Registered Nurse; ADMITTING PHYSICIAN Hospitalist; ATTENDING PHYSICIAN Internal Medicine; CONSULT PHYSICIAN Internal Medicine Critical Care Medicine; CONSULT PHYSICIAN Psychiatry & Neurology Psychiatry; EMERGENCY PHYSICIAN Emergency Medicine; FAMILY PHYSICIAN Internal Medicine Critical Care Medicine
DX: J44.89 Other specified chronic obstructive pulmonary disease (principal); E43 Unspecified severe protein-calorie malnutrition; Z68.1 Body mass index [BMI] 19.9 or less, adult; D86.0 Sarcoidosis of lung; F06.4 Anxiety disorder due to known physiological condition; R63.4 Abnormal weight loss; G89.29 Other chronic pain; K57.30 Diverticulosis of large intestine without perforation or abscess without bleeding; F32.A Depression, unspecified; R09.02 Hypoxemia; R06.89 Other abnormalities of breathing; E03.9 Hypothyroidism, unspecified; K21.9 Gastro-esophageal reflux disease without esophagitis; R62.7 Adult failure to thrive; I12.9 Hypertensive chronic kidney disease with stage 1 through stage 4 chronic kidney disease, or unspecified chronic kidney disease; N18.32 Chronic kidney disease, stage 3b; D72.819 Decreased white blood cell count, unspecified
CPT/HCPCS: 93308; 71046; 80048; 80053; 84443; 84484; 85025; 85027; 93005; 93321; 93325; 94640; 96361; 96374; 97162; 99285

== ENCOUNTER → 2023-09-04 11:09 | Outpatient (REF) | payer MEDICARE, OTHER, SELFPAY ==
[2023-09-04 12:16] LABS: Hemoglobin 14.5 g/dL (12.0-16.0)
[2023-09-04 14:38] LABS: ALT (SGPT) 11 U/L (0-35); AST (SGOT) 18 U/L (14-36); Albumin 3.8 g/dl (3.5-5.0); Alkaline Phosphatase 116 U/L (38-126); Blood Urea Nitrogen 36 mg/dl (7-17); Calcium 11.3 mg/dl (8.4-10.2); Carbon Dioxide 22 mmol/L (22-30); Chloride 105 mmol/L (98-107); Glucose 112 mg/dl (70-99); Iron 60 ug/dl (37-170); Magnesium 2.3 mg/dl (1.6-2.3); Phosphorus 3.3 mg/dl (2.5-4.5); Potassium 4.8 mmol/L (3.5-5.1); Sodium 136 mmol/L (135-145); Total Bilirubin 1.4 mg/dl (0.2-1.3); Total Protein 7.3 g/dl (6.3-8.2); eGFR 27.54
[2023-09-04 14:48] LABS: Percent Saturation 20 % (20-50); Total Iron Binding Capacity 287 ug/dl (265-497)
[2023-09-04 16:15] LABS: Vitamin D, 25-OH*** 20.2 ng/mL (30-80)
[2023-09-05 08:45] LABS: Intact PTH 277.3 pg/ml (13.6-85.8)
== END ==
LOC: REG 11:09
PROVIDERS: ATTENDING PHYSICIAN Internal Medicine Nephrology
DX: N18.4 Chronic kidney disease, stage 4 (severe) (principal)
CPT/HCPCS: 36415; 80053; 82306; 82728; 83540; 83550; 83735; 83970; 84100; 85014; 85018

== ENCOUNTER 2024-02-27 22:47 | Observation (INO) | payer MEDICARE, OTHER, SELFPAY ==
[2024-02-27] VITALS (7 sets, daily range): BP systolic 144–216; BP diastolic 72–108; BMI 16.9
--- NOTE | 2024-02-27 16:56 | ED.GENMED ---
ED Provider Triage
<Radha Colon PA-C - Last Filed: 02/27/24 16:59>
-
Patient seen by provider in Triage?: Seen in Triage
Attestation: A medical screening examination has been initiated by a qualified medical provider. Based on the assessment performed at this time, it has been determined that an emergent medical condition may exist and the patient has been informed
that further medical evaluation and possible additional diagnostic testing may be needed.
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 Has been feeling tired and stressed out. Has not been eating much and has lost 10 pounds due to stress. BP was reportedly 90/60 in the office and SBP
went up to 190 on recheck.
GENERAL: Alert , in no apparent distress
EYE: No visual abnormalities.
NECK: Trachea midline
ENT: No visible abnormalities.
LUNGS: No acute respiratory distress
NEUROLOGICAL: Alert and oriented
SKIN: Skin intact. No visible changes.
MUSCULOSKELETAL: Moving extremities normally
PSYCH: Normal and appropriate interaction.
This is a medical evaluation conducted in person to initiate diagnostic evaluation and provide initial therapeutics. Please see further documentation by the treating clinician.
Cardiac labs and EKG ordered.
History of Present Illness
<Radha Colon PA-C - Last Filed: 02/27/24 16:59>
General
Chief Complaint: Dizziness
Time Seen by Provider: 02/27/24 19:35
<DYLAN Tate - Last Filed: 02/27/24 21:39>
General
Source: patient
Exam Limitations: none
History of Present Illness
History of Present Illness:
This is a 74 year old female that was sent over from Dr Kennedy office with Hypertension and syncope. States that she went to the [employer] office and her BP was 190. State that when she was walking into the office she passed out but she was
caught and did not fall. Sates that she has Costochondritis and it flares up this time of year and causes chest pain. States that she is very tired and has been under a lot of stress. States that she does have a headache on top of her head. Denies
any fever, chills, SOB, abd pain, nausea, vomiting, diarrhea, dizziness, urinary burning.
Past History
<Radha Colon PA-C - Last Filed: 02/27/24 16:59>
Past History
ED Past Medical History: Asthma, CAD, GERD, HTN, Hypercholesterolemia, AR, Hypothyroidism and Other (sarcoidosis, renal insuff, hyperparathyroidism, anemia)
ED Past Surgical History: Cholecystectomy and Gynecological
Social History
Tobacco: Non-smoker
Alcohol: None
Drug: None
Personal: Single
Living: alone
Employment: Retired
Family History
Family History: Other (Noncontributory)
<DYLAN Tate - Last Filed: 02/27/24 21:39>
Past History
ED Past Medical History: Other (sarcoidosis, renal insuff, hyperparathyroidism, anemia, PNA, Hiatal hernia, Ulcers, UTI, Fibroids, Anemia,)
ED Past Surgical History: Cardiac (Stent X 1), Cholecystectomy, Gynecological (Hysterectomy), Orthopedic (Left shoulder fracture, ) and Other (cataracts, Right breast cyst re move, )
Social History
Tobacco: Former smoker
Alcohol: None
Personal: Single
Living: alone
Review of Systems
<DYLAN Tate - Last Filed: 02/27/24 21:39>
Review of Systems
All Other Systems: ROS reviewed and negative except as documented in HPI and ROS
Constitutional: Reports no symptoms; Denies fever or chills
EENT: Reports no symptoms
Respiratory: Denies cough or trouble breathing
Cardiac: Reports chest pain (says its her Costocondritis)
ABD/GI: Reports no symptoms; Denies abdominal pain, nausea, vomiting or diarrhea
: Reports no symptoms; Denies dysuria, frequency or urgency
Musculoskeletal: Reports no symptoms
Skin: Reports no symptoms
Neurological: Reports headache; Denies dizzy
Psychiatric: Reports no symptoms
Phy Exam
<DYLAN Tate - Last Filed: 02/27/24 21:39>
General Physical Exam
General Presentation: no apparent distress
General age: appears stated age
General Skin: warm and dry
General Habitus: elderly
General Mental: alert
General Hydration: appears well hydrated
ENT Exam
ENT Exam: TM's normal, pharynx normal and neck supple
Eye Exam
Eye Exam: EOMI
Cardiovascular Exam
Cardiovascular Exam: no edema, normal peripheral pulses and bradycardia
Pulmonary Exam
Pulmonary Exam: no rales, chest non tender, no crackles, no rhonchi, no cough and other (Ins and exp wheezing throughtout)
Gastrointestinal Exam
Gastrointestinal Exam: normal bowel sounds, non tender, soft, no organomegaly, no pulsatile mass and non distended
Musculoskeletal Exam
Musculoskeletal Exam: full ROM and no edema
Skin Exam
Skin Exam: normal color, warm/dry, no rash and no petechia
Psychiatric Exam
Psychiatric Exam: normal mood/affect
Course
<Radha Colon PA-C - Last Filed: 02/27/24 16:59>
Orders/Labs/Results
Orders:
Orders
02/27/24 16:47
Electrocardiogram (*1) Urgent
Reason for Study: Vertigo / Dizzy
EKG- Treatment ONCE
02/27/24 17:12
Complete Blood Count/With Diff Urgent
02/27/24 20:22
Comprehensive Metabolic Panel Urgent
Troponin I Urgent
02/27/24 20:32
Acetaminophen [Tylenol] 1,000 mg .ROUTE .STK-MED ONE
02/27/24 20:33
Acetaminophen [Tylenol] 1,000 mg PO NOW STA
02/27/24 20:35
Acetaminophen [Tylenol] 500 mg .ROUTE .STK-MED ONE
Acetaminophen [Tylenol] 500 mg PO NOW STA
02/27/24 21:03
HydrALAZINE [Apresoline] 10 mg IV NOW STA
Abnormal Lab Results
02/27/24 02/27/24
17:12 20:22
Absolute Lymphs (auto) 0.5 L 10^3/uL
(1.2-3.4)
Neutrophils % 78.7 H %
(42.2-75.2)
Lymphocytes % 8.9 L %
(20.5-51.1)
BUN 36 H mg/dl
(7-17)
Creatinine 1.5 H mg/dL
(0.6-1.0)
Calcium 11.6 H mg/dl
(8.4-10.2)
02/27/24 17:12
02/27/24 20:22
Vital Signs
Initial and Last Documented VS:
Initial Vital Signs
Temp Pulse Resp BP Pulse Ox
97.5 F 55 18 216/108 95
02/27/24 16:56 02/27/24 16:56 02/27/24 16:56 02/27/24 16:56 02/27/24 16:56
Last Documented Vital Signs
Temp Pulse Resp BP Pulse Ox
97.5 F 56 18 190/92 97
02/27/24 16:56 02/27/24 21:00 02/27/24 21:00 02/27/24 21:00 02/27/24 21:00
<DYLAN Tate - Last Filed: 02/27/24 21:39>
Orders/Labs/Results
Orders:
Orders
02/27/24 16:47
Electrocardiogram (*1) Urgent
Reason for Study: Vertigo / Dizzy
EKG- Treatment ONCE
02/27/24 17:12
Complete Blood Count/With Diff Urgent
02/27/24 20:22
Comprehensive Metabolic Panel Urgent
Troponin I Urgent
02/27/24 20:32
Acetaminophen [Tylenol] 1,000 mg .ROUTE .STK-MED ONE
02/27/24 20:33
Acetaminophen [Tylenol] 1,000 mg PO NOW STA
02/27/24 20:35
Acetaminophen [Tylenol] 500 mg .ROUTE .STK-MED ONE
Acetaminophen [Tylenol] 500 mg PO NOW STA
02/27/24 21:03
HydrALAZINE [Apresoline] 10 mg IV NOW STA
Abnormal Lab Results
02/27/24 02/27/24
17:12 20:22
Absolute Lymphs (auto) 0.5 L 10^3/uL
(1.2-3.4)
Neutrophils % 78.7 H %
(42.2-75.2)
Lymphocytes % 8.9 L %
(20.5-51.1)
BUN 36 H mg/dl
(7-17)
Creatinine 1.5 H mg/dL
(0.6-1.0)
Calcium 11.6 H mg/dl
(8.4-10.2)
02/27/24 17:12
02/27/24 20:22
Chronic renal insufficiency, Hypercalcemia, Troponin <0.012
Vital Signs
Initial and Last Documented VS:
Initial Vital Signs
Temp Pulse Resp BP Pulse Ox
97.5 F 55 18 216/108 95
02/27/24 16:56 02/27/24 16:56 02/27/24 16:56 02/27/24 16:56 02/27/24 16:56
Last Documented Vital Signs
Temp Pulse Resp BP Pulse Ox
97.5 F 56 18 190/92 97
02/27/24 16:56 02/27/24 21:00 02/27/24 21:00 02/27/24 21:00 02/27/24 21:00
<DYLAN Tate - Last Filed: 02/27/24 21:39>
MDM/Problems Addressed
Differential Diagnosis Includes:
Acute hypertension, Syncope
MDM/Problems Addressed:
This is a 74 year old female that comes in from the [employer] office with Hypertension and Syncope.
Will check labs. Dr. Kennedy felt that patient needed admission for at least 23 hours for observation. Explained to patient that she will be admitted.
Patient refused the Hydralazine as states that this made her vomit for hours before. Explained to patient that will let the Hospitalist decide what to place patient on.
Chronic conditions affecting care: HTN and CAD
Acute Exacerbation and/or Progression of Chronic Illness: HTN and CAD
<DYLAN Tate - Last Filed: 02/27/24 21:39>
*Pulse Oximetry
Patient hypoxic: no
*EKG
Interpreted by ED Provider?: Yes
Heart Rate: 54
Rate: bradycardiac
Rhythm: sinus
[place]: normal axis
Interval: normal interval
QRS Pattern: normal QRS
Ischemia: no ischemia
*Mammal Keeper Interpretation
Rate: normal
Heart Rate: 64
Rhythm: sinus
*Critical Care Note
Total Time (30-74mins, 75-104mins- exclusive of procedures): Not Applicable
ED Attending Note
<Radha Colon PA-C - Last Filed: 02/27/24 16:59>
-
Portions of this chart may have been created with voice recognition software.� Occasional wrong word or��sound alike� substitutions may have occurred due to the inherent limitations of voice recognition software.
Discharge Plan
Departure
Patient Disposition: Admit
Date of Disposition: 02/27/24
Time of Disposition: 21:07
Admit to: Telemetry
Presentation/result/management discussed w/ accepting MD/DO: Hospitalist
Patient with high blood pressure during this ER visit?: Yes
Condition: Good
Covid-19: Not Applicable
Discharge Problem:
Syncope, Hypertension
Prescriptions:
No Action
budesonide [Pulmicort] 0.5 MG/2 ML suspension for nebulization
0.5 mg inhalation R BID
acetaminophen [Tylenol Extra Strength] 500 mg Tablet
500 mg PO DAILYPRN PRN (Reason: mild pain)
levothyroxine 50 mcg Tablet
50 mcg PO DAILY
erythromycin 5 mg/gram (0.5 %) Ointment
1 applic BOTH EYES HS
Patient Comments:
04/06/23 filled on 03/21/23
Systane (PF) 0.4-0.3 % Dropperette
1 drp BOTH EYES BID
levalbuterol tartrate [Xopenex HFA] 45 mcg/actuation Hfa Aerosol Inhaler
2 inh INHALATION R Q6HPRN PRN (Reason: sob)
atorvastatin 80 MG tablet
80 mg PO HS
ipratropium-albuterol 0.5 mg-3 mg(2.5 mg base)/3 mL Solution For Nebulization
3 ml INHALATION R TID
nitroglycerin 0.4 mg Tablet, Sublingual
0.4 mg SUBLINGUAL [id number] PRN (Reason: chest pain)
carvedilol 12.5 mg Tablet
12.5 mg PO BID Qty: 60 0RF
Avenova 0.01 % Piru,Non-Aerosol
1 spray TOPICAL BID
ipratropium-albuterol 0.5 mg-3 mg(2.5 mg base)/3 mL Solution For Nebulization
3 ml INHALATION R HSPRN PRN (Reason: sob)
pantoprazole 40 mg Tablet,Delayed Release (Dr/Ec)
40 mg PO NOON
losartan 25 mg Tablet
25 mg PO DAILY
aspirin 81 MG tablet,delayed release (DR/EC)
81 mg PO HS
lorazepam 0.5 mg tablet
0.5 mg PO HSPRN PRN (Reason: sleep)
Referrals:
NONE,* [Family Provider] -
Interventions
Interventions:
*Risk Screen - Suicide Last Done: 02/27/24 20:29
*General Assessment Last Done: 02/27/24 20:29
*Neglect/Abuse Screening Last Done: 02/27/24 20:29
ED- Fall Risk Assessment Last Done: 02/27/24 20:30
ED- Neurological Assessment Last Done: 02/27/24 20:29
ED- Cardiac Assessment Last Done: 02/27/24 20:30
ED Swallowing Screen Last Done: 02/27/24 20:30
Discharge Date and Time
Print Language: SWISS
[2024-02-27 17:36] LABS: % Basophils 0.4 % (0-2); % Eosinophils 2.3 % (0-6); % Immature Granulocytes 0.4 % (0-0.5); % Lymphocytes 8.9 % (20.5-51.1); % Monocytes 9.3 % (1.7-9.3); % Neutrophils 78.7 % (42.2-75.2); Absolute Eosinophils 0.1 10^3/uL (0-0.7); Absolute Lymphocytes 0.5 10^3/uL (1.2-3.4); Absolute Monocytes 0.5 10^3/uL (0.1-0.6); Absolute Neutrophils 4.4 10^3/uL (1.4-6.5); Hematocrit 43.5 % (37.0-47.0); Mean Corp Hgb Conc. 34.5 g/dL (33.0-37.0); Mean Corpuscular Hgb 29.4 pg (27.0-31.0); Mean Corpuscular Volume 85.3 fL (81.0-99.0); Mean Platelet Volume 10.4 fL (7.4-10.4); Nucleated Red Blood Cells % 0 %; Platelet Count 291 10^3/uL (130-400); Red Cell Dist. Width 13.6 % (11.5-14.5); White Blood Cell Count 5.6 10^3/uL (4.8-10.8)
[2024-02-27] MEDS: TYLENOL 500 MG PO (20:36)
[2024-02-27 20:56] LABS: ALT (SGPT) 19 U/L (0-35); AST (SGOT) 25 U/L (14-36); Albumin 4.2 g/dl (3.5-5.0); Alkaline Phosphatase 86 U/L (38-126); Blood Urea Nitrogen 36 mg/dl (7-17); Calcium 11.6 mg/dl (8.4-10.2); Carbon Dioxide 25 mmol/L (22-30); Chloride 104 mmol/L (98-107); Estimated Creatinine Clearance 24 ml/min; Glucose 88 mg/dl (70-99); Sodium 139 mmol/L (135-145); Total Bilirubin 1.3 mg/dl (0.2-1.3); Total Protein 7.6 g/dl (6.3-8.2); eGFR 36.34
[2024-02-27 21:07] LABS: Troponin I < 0.012 ng/ml
--- NOTE | 2024-02-27 21:25 | HPS.HSE ---
Addendum entered and electronically signed by Jovanny Vaz DO 02/27/24 23:15:
Patient seen and examined independently. Agree with findings and plan as set forth by DYLAN Terrell.
Patient is a 74y F with PMH significant for ASCVD, hypertension, sarcoidosis and anxiety who presents to ED from her [employer] office for evaluation of lightheadedness / near-syncope. Patient states that she has been under a great deal of
stress lately - primarily in regards to her living situation. She is currently living with her son in [place] and is not happy with that arrangement. Today she was seen at her [employer] office for routine follow-up. In the office,
patient became lightheaded and nearly passed out. She was assisted by staff, sat down in a chair and did not lose consciousness or fall / suffer any trauma. There was a single recorded low BP (90 systolic); however, all BP since that time have
been 190 or greater. Patient was advised to present to the ED for further evaluation and treatment.
Patient denies any chest pain, dyspnea, N/V or other complaints at present. She complains primarily of anxiety / stress.
Patient is quite concerned about what medications she might be given noting that she has had several adverse events in the past - including with hydralazine.
She would prefer to take medications that she is already on / familiar with.
Ass:
Syncope / Near-Syncope
Uncontrolled Hypertension
Generalized Anxiety
ASCVD
Sarcoidosis
GERD
Hypothyroidism
Plan:
Observe overnight for further evaluation and treatment.
Continue usual BP med regimen and adjust as needed for improved control.
PRN labetalol for higher BPs.
Increase frequency of PRN anxiolytic given significant anxiety on exam / interview.
Check CT head for completeness.
Follow for any new symptoms/ recurrent syncope / etc.
PT eval in the AM.
Continue other usual outpatient medications.
Discussed other antihypertensive medication options; however, patient extremely fearful of 'new' medicines.
Original Note:
Family Physician
-
Family Physician: * NONE
Chief Complaint
-
Near Syncopal Episode
History of Present Illness
Patient is a 74-year-old female with past medical history of coronary artery disease, hypercholesteremia, asthma, interstitial lung disease, sarcoidosis, hypothyroidism and GERD. Patient reports she was in the cardiology office earlier where she had
a near syncopal episode and elevated blood pressure. She was then sent to ED for evaluation.
Medical History
Past Medical History
Past Medical History: Reports Other
Additional Past Medical History:
coronary artery disease
asthma
interstitial lung disease
sarcoidosis
GERD
hypothyroidism
Past Surgical History: Reports Other
Additional Past Surgical History:
hysterectomy
cholecystectomy
Social History
Tobacco: Former Smoker
Alcohol: None
Drug: None
Personal: Single
Living: With Family
Family History
Family History: Not pertinent
Allergies / Home Medications
Allergies reflects when Allergies were last updated in [facility].
Home Medications with original date entered in [facility]
Allergy/Medication List:
Allergies
Allergy/AdvReac Type Severity Reaction Status Date / Time
amlodipine Allergy Unknown Verified 02/27/24 16:52
codeine Allergy Unknown Verified 02/27/24 16:52
abebe Allergy Unknown Verified 02/27/24 16:52
fluticasone Allergy Unknown Verified 02/27/24 16:52
[From Advair Diskus]
latex Allergy red rash Verified 02/27/24 16:52
and
swelling
metoprolol Allergy Unknown Verified 02/27/24 16:52
Penicillins Allergy unsure as Verified 02/27/24 16:52
mother
passed
whether
she is or
not
pentazocine lactate Allergy hallucinations, Verified 02/27/24 16:52
[From Talwin] bad head,
terrible
headaches
prednisone Allergy terrible Verified 02/27/24 16:52
headaches,
bleeding,
racing
heart
salmeterol Allergy Unknown Verified 02/27/24 16:52
[From Advair Diskus]
powders, flours (some) Allergy Due to Uncoded 02/27/24 16:52
Sarcoidosis
Home Medications
�Medication �Instructions �Recorded
budesonide 0.5 mg/2 mL suspension 0.5 mg inhalation R BID 11/09/20
for nebulization (Pulmicort) Lung/Breathing Issues
acetaminophen 500 mg tablet 500 mg PO DAILYPRN PRN mild pain 03/03/23
(Tylenol Extra Strength)
atorvastatin 80 mg tablet 80 mg PO HS High Cholesterol 03/03/23
erythromycin 5 mg/gram (0.5 %) eye 1 applic BOTH EYES HS Eye Condition 03/03/23
ointment
levalbuterol tartrate 45 2 inh inhalation R Q6HPRN PRN sob 03/03/23
mcg/actuation aerosol inhaler
(Xopenex HFA)
levothyroxine 50 mcg tablet 50 mcg PO DAILY Thyroid 03/03/23
peg 400-propylene glycol (PF) 0.4 1 drp BOTH EYES BID Eye Condition 03/03/23
%-0.3 % eye drops in a dropperette
(Systane (PF))
ipratropium 0.5 mg-albuterol 3 mg 3 ml inhalation R TID 04/06/23
(2.5 mg base)/3 mL nebulization
soln
nitroglycerin 0.4 mg sublingual 0.4 mg sublingual [id number] PRN 04/06/23
tablet chest pain
carvedilol 12.5 mg tablet 12.5 mg PO BID Blood pressure #60 04/10/23
tabs
hypochlorous acid 0.01 %-sodium 1 spray topical BID both eyes 08/05/23
chloride topical spray (Avenova)
aspirin 81 mg tablet,delayed 81 mg PO HS Blood clot 02/27/24
release prevention/tx
ipratropium 0.5 mg-albuterol 3 mg 3 ml inhalation R HSPRN PRN sob 02/27/24
(2.5 mg base)/3 mL nebulization
soln
lorazepam 0.5 mg tablet 0.5 mg PO HSPRN PRN sleep 02/27/24
losartan 25 mg tablet 25 mg PO DAILY 02/27/24
pantoprazole 40 mg tablet,delayed 40 mg PO NOON 02/27/24
release
Review of Systems
-
History Source: Patient
Constitutional: Reports No Symptoms
EENT: Reports No Symptoms
Respiratory: Reports No Symptoms
Cardiac: Reports No Symptoms
Abdomen/GI: Reports Nausea (prior to near syncopal epsiode)
: Reports No Symptoms
Musculoskeletal: Reports No Symptoms
Skin: Reports No Symptoms
Neurological: Reports No Symptoms
Endocrine: Reports No Symptoms
Hematologic/Lymphatic: Reports No Symptoms
Psych: Reports No Symptoms
Physical Exam
Vital Signs
Vital Signs
Temp Pulse Resp BP Pulse Ox
97.5 F 56 18 190/92 97
02/27/24 16:56 02/27/24 21:00 02/27/24 21:00 02/27/24 21:00 02/27/24 21:00
Physical Exam
General: Well Developed, Well Nourished and No Apparent Distress
HEENT: NormoCephalic, Moist mucous membranes, Atraumatic, [place] Conjunctivae, Nose Appears Normal and Ears Appear Normal
Respiratory: Clear and Wheezes
Cardiac: S1/S2 and Regular Rhythm; No Murmur, Rub or Gallop
Breast: Deferred by me
GI: Soft, Non Tender, Non Distended and Normal Bowel Sounds; No Organomegaly
Rectal: Deferred by Provider
Genito-urinary: Deferred by me
Musculoskeletal: No Clubbing, No Cyanosis and No Edema
Skin: Warm, Dry and IV/Catheter Site; No Rash
Neuro: Awake, Alert, AO x 3, Nonfocal/grossly intact and Cranial Nerves Intact
Hematologic/Lymphatic: No Lymphadenopathy
Psych: Calm and Intact Judgment/Insight
Laboratory Results
-
02/27/24 17:12
02/27/24 20:22
Laboratory Results
Total Bilirubin 1.3 mg/dl (0.2-1.3) 02/27/24 20:22
AST 25 U/L (14-36) 02/27/24 20:
ALT 19 U/L (0-35) 02/27/24 20:22
Alkaline Phosphatase 86 U/L (38-126) 02/27/24 20:22
Troponin I < 0.012 ng/ml 02/27/24 20:22
Data Reviewed
-
Medical Tests (Nuc Med, Echo, EKG etc): Report Reviewed by me (EKG - SINUS BRADYCARDIA)
Lab Data: Labs Reviewed by me
Impression/Plan
-
IMPRESSION/PLAN:
#Uncontrolled Hypertension
- orthostatic blood pressures
- continue carvedilol, losartan
- PRN Labetalol for SBP >180
#near syncopal episode
- uncontrolled hypertension
- orthostatic blood pressures
- UA
- Head CT
#coronary artery disease
- continue ASA, atorvastatin and carvedilol
#asthma
#interstitial lung disease
#sarcoidosis
- follows out patient with Dr. Nj
- continue Pulmicort and DuoNeb
#GERD
- continue pantoprazole
#hypothyroidism
- continue levothyroxine
#Anxiety
- continue PRN lorazepam
Full Code
DVT Px: SCDs
[2024-02-27 22:52] LABS: Urine Albumin Trace (Neg - Trace); Urine Bilirubin Negative (Negative); Urine Character Clear (Clear); Urine Color Yellow; Urine Glucose Negative (Negative); Urine Ketone Negative (Negative); Urine Leukocyte 2+ (Negative); Urine Nitrite Negative (Negative); Urine Occult Blood Negative (Negative); Urine Specific Gravity 1.015 (<1.030); Urine Urobilinogen Negative (Neg - 1+)
[2024-02-27 23:00] LABS: Urine Urothelial Cell 0-2 /LPF (FEW)
[2024-02-27 23:01] LABS: Urine Bacteria Moderate (Negative); Urine Red Blood Cell 0-2 /HPF (0-2)
[2024-02-27] MEDS: PULMICORT 0.5 MG INH (23:42)
[2024-02-27] MEDS: DUONEB 3 ML INH (23:42)
[2024-02-27] MEDS: ATIVAN 0.5 MG PO (23:57)
[2024-02-28] VITALS (8 sets, daily range): BP systolic 121–164; BP diastolic 63–79; PULSE 58–62; BMI 16.2
--- NOTE | 2024-02-28 04:20 | PTCARENOTE ---
Pt. rec'd into to room 2245 (med/surg orders) AAOx3, BP stable at 134/72, HR 57. Pt. denied any dizziness, CP, SOB. Ambulatory with steady gait. Admission completed and patient oriented to room. Plan of care discussed, understanding verbalized.
Pt. currently sleeping.
[2024-02-28 04:22] LABS: Hematocrit 40.7 % (37.0-47.0); Hemoglobin 13.8 g/dL (12.0-16.0); Mean Corp Hgb Conc. 33.9 g/dL (33.0-37.0); Mean Corpuscular Hgb 29.4 pg (27.0-31.0); Mean Corpuscular Volume 86.8 fL (81.0-99.0); Mean Platelet Volume 10.6 fL (7.4-10.4); Platelet Count 280 10^3/uL (130-400); Red Blood Cell Count 4.69 10^6/uL (4.20-5.40); Red Cell Dist. Width 13.5 % (11.5-14.5); White Blood Cell Count 5.6 10^3/uL (4.8-10.8)
[2024-02-28 04:32] LABS: Blood Urea Nitrogen 37 mg/dl (7-17); Calcium 11.4 mg/dl (8.4-10.2); Carbon Dioxide 22 mmol/L (22-30); Chloride 107 mmol/L (98-107); Estimated Creatinine Clearance 21 ml/min; Glucose 78 mg/dl (70-99); Potassium 4.7 mmol/L (3.5-5.1); Sodium 139 mmol/L (135-145); eGFR 33.63
[2024-02-28] MEDS: SYNTHROID 50 MCG PO (06:08)
[2024-02-28] MEDS: DUONEB 3 ML INH ×2 (07:23→14:34)
[2024-02-28] MEDS: PULMICORT 0.5 MG INH (07:23)
--- NOTE | 2024-02-28 08:19 | W.PN.CD ---
Addendum entered and electronically signed by Jimmie Austin MD 02/28/24 10:08:
I saw and examined the patient.
The [employer]'s note was reviewed and I agree with the note.
Comment: She is feeling better since getting ativan. No further cp or sob. Limited tele is normal. ECG is sinus bradycardia, exam is rrr no m/r/g, lungs cta. no le edema. She will need an updated echo for evaluation given near syncope and
sarcoidosis. if normal would arrange a 7 day monitor. Continue remaining meds for bp. f/u tsh.
d/w Dr Wong. If all normal could consider discharge later today vs tomorrow.
Original Note:
Today's Communication / Plan
-
Echo, tele, orthos, TSH
follow BP's
Consider psych evaluation
Impression / Plan
-
74 y/o female with CAD with hx STEMI and RCA stenting 2014, sarcoidosis, COPD, CKD, dyslipidemia, hypothyroidism, monoclonal gammopathy (heme/onc at [facility]), small pericardial effusion, and chronic intermittent chest pain who saw Dr. Kennedy in the
office yesterday and reported that overall she has been feeling unwell for past 7 months, has had poor appetite and weight loss, and has been under stress and showing signs of anxiety/depression. In the office, she had a near syncopal episode with
low BP, then when seen by Dr. Kennedy, she was noted to have elevated BP.
Near syncope:
-in office yesterday, had been standing and was nervous and felt light-headed and weak legs- SBP reported at 90 mmHg. She did not pass out. She saw Dr. Kennedy and BP was quite elevated.
-echo today
-needs to be on telemetry, which I have ordered and discussed with nursing. In ER, SR without any concerning arrhythmias. EKG SB.
-orthos
HTN:
-labile
-she thinks all related to stress
-severely elevated in ER, has normalized without BP meds. Did get lorazepam overnight.
-on losartan and coreg
Anxiety, stress, depressed mood:
-Dr. Kennedy's assessment in office. She reports she is not happy with her living situation.
-she got lorazepam overnight- Makes her stomach feel off, so she takes pepto bismol at home for this which helps- she asked for it this AM and I ordered it.
-consider psych eval- I discussed this with her- she does not want to just be started on new medicines
COPD, sarcoidosis:
-follows with pulmonary
-no increased SOB per patient
CAD:
-hx stenting
-stable without angina
-continue ASA, statin, and BB
-EKG and trop fine
Hypothyroidism:
-check levels
-continue replacement
Monoclonal gammopathy:
-follows at [facility] for this
CKD:
-seems to be stable
Data:
Echo 08/07/2023: Normal biventricular size and systolic function without regional wall motion abnormality. Small pericardial effusion without evidence of hemodynamic compromise. No significant change since the prior study of 06/26/23.
Physical Exam
Vital Signs/Labs
Vital Signs
Temp Pulse Resp BP Pulse Ox
97.8 F 63 18 134/72 97
02/28/24 03:04 02/28/24 07:27 02/28/24 07:27 02/28/24 03:04 02/28/24 07:27
02/27/24 02/28/24 02/29/24
06:59 06:59 06:59
Actual Weight 44.1 kg
02/28/24 03:07
02/28/24 03:07
LAB Results
02/27/24 02/27/24
17:12 20:22
Troponin I Cancelled < 0.012
Physical Exam
Constitutional: No acute distress
EENT: Anicteric
Cardiovascular: Rhythm & rate is regular
Respiratory: Respiratory effort normal and Lungs clear to auscul.
Neuro/Psych: AO x 3
Data Reviewed
-
Date of Service: February 28, 2024
EKG: Tracing Personally Visualized and interpreted (SB) and Other (SR in ER)
Echo: Ordered by me
Labs: Labs Reviewed by me
[2024-02-28] MEDS: TYLENOL 650 MG PO (08:45)
[2024-02-28] MEDS: COZAAR 25 MG PO (08:46)
[2024-02-28] MEDS: COREG 12.5 MG PO (08:46)
[2024-02-28] MEDS: PEPTO-BISMOL 2 TABLET PO (10:31)
[2024-02-28] MEDS: REFRESH EYE DROPS (PF) 1 DROPS BOTH EYES (10:31)
[2024-02-28 11:00] LABS: TSH Reflex To Free T4 1.28 uIU/ml (0.47-4.68)
--- NOTE | 2024-02-28 13:05 | CM ---
CM following for DC planning needs.
Met w/ patient at bedside to complete initial assessment.
Pt. states that she resides w/ son in a private home in [place]. She is unhappy w/ this living arrangement as she wishes to be back to [place]. We discussed options such as [facility] [employer] [facility], [place]. low cost housing (waitlist closed) and
shared housing. Will provide website '[email or web address]' for further support.
Pt. will return to her son's home @ DC and has transportation.
OBS discussed. BAUER provided. Pt. refused to sign. Copy given.
Plan is for DC to home w/ son once stable, no needs.
Will remain avail.
--- NOTE | 2024-02-28 13:33 | W.PN.HOSP.TC ---
Today's Communication/Plan
-
dc to home
Assessment / Plan
Assessment / Plan
Assessment:
Near syncope
- ortho normal
- Echo normal
- tele normal; has refused outpatient heart monitor
- likely anxiety/stress induced
Essential HTN
- labile due to stress; will continue home BP meds
Anxiety, stress, depressed mood:
- She reports she is not happy with her living situation
- prn Ativan
- patient deferred psych evaluation
COPD, sarcoidosis:
- follows with pulmonary
- no increased SOB per patient
CAD:
- hx stenting
- stable without angina
- continue ASA, statin, and BB
- EKG and trop normal
Hypothyroidism:
- continue replacement; TSH 1.28
Monoclonal gammopathy:
- follows at [facility] for this
CKD:
- stable
DVT ppx: Lovenox
Code: Full
More than 30 minutes spent in discharge including
Final examination of the patient
Summarizing hospital stay
Instructions for continuing care to all relevant caregivers
Preparation of discharge records, prescriptions, and referral forms
Total time spent (in minutes): 41
Anticipated Discharge: Today
Subjective/Interval History
-
Date of Service: February 28, 2024
denies any new complaints
Objective Data
-
Labs:
Laboratory Results
02/28/24
03:07
WBC 5.6
Hgb 13.8
Hct 40.7
Plt Count 280
Sodium 139
Potassium 4.7
Chloride 107
Carbon Dioxide 22
BUN 37 H
Creatinine 1.6 H
Glucose 78
Calcium 11.4 H
Vital Signs:
Vital Signs
Temp Pulse Resp BP Pulse Ox
98.3 F 57 18 164/78 97
02/28/24 09:00 02/28/24 11:45 02/28/24 07:27 02/28/24 08:46 02/28/24 07:27
Physical Exam
-
General: No Apparent Distress
HEENT: Normocephalic and Atraumatic
Respiratory: Negative Wheezes
Cardiac: Regular Rhythm and S1/S2
GI: Soft
Genito-urinary: No Costovertebral Tender
Neuro: AO x 3
Psych: Calm
Data Reviewed
-
Total Time Spent with Patient (in minutes): 41
Labs: Labs Reviewed by me
--- NOTE | 2024-02-28 13:42 | W.DS.TRANS ---
DC Summary - Brand Lead
-
Discharge Instructions:
Discharge Diagnosis/Procedures near syncope, anxiety
Diet Regular
Activity As tolerated
Instructions:
Stand-Alone Forms:
Changes to Home Medications: No
Discharge Medications:
DC Medications w/original date entered in [facility]
budesonide 0.5 mg/2 mL suspension for nebulization (Pulmicort) 0.5 mg inhalation R BID Lung/Breathing Issues 11/09/20
acetaminophen 500 mg tablet (Tylenol Extra Strength) 500 mg PO DAILYPRN PRN mild pain 03/03/23
atorvastatin 80 mg tablet 80 mg PO HS High Cholesterol 03/03/23
erythromycin 5 mg/gram (0.5 %) eye ointment 1 applic BOTH EYES HS Eye Condition 03/03/23
levalbuterol tartrate 45 mcg/actuation aerosol inhaler (Xopenex HFA) 2 inh inhalation R Q6HPRN PRN sob 03/03/23
levothyroxine 50 mcg tablet 50 mcg PO DAILY Thyroid 03/03/23
peg 400-propylene glycol (PF) 0.4 %-0.3 % eye drops in a dropperette (Systane (PF)) 1 drp BOTH EYES BID Eye Condition 03/03/23
ipratropium 0.5 mg-albuterol 3 mg (2.5 mg base)/3 mL nebulization soln 3 ml inhalation R TID 04/06/23
nitroglycerin 0.4 mg sublingual tablet 0.4 mg sublingual [id number] PRN chest pain 04/06/23
carvedilol 12.5 mg tablet 12.5 mg PO BID Blood pressure #60 tabs 04/10/23
hypochlorous acid 0.01 %-sodium chloride topical spray (Avenova) 1 spray topical BID both eyes 08/05/23
aspirin 81 mg tablet,delayed release 81 mg PO HS Blood clot prevention/tx 02/27/24
ipratropium 0.5 mg-albuterol 3 mg (2.5 mg base)/3 mL nebulization soln 3 ml inhalation R HSPRN PRN sob 02/27/24
lorazepam 0.5 mg tablet 0.5 mg PO HSPRN PRN sleep 02/27/24
losartan 25 mg tablet 25 mg PO DAILY 02/27/24
pantoprazole 40 mg tablet,delayed release 40 mg PO NOON 02/27/24
Home Medication Changes
Pending Results: No
Total time spent discharging patient (in min): 41
[2024-02-28] MEDS: PROTONIX 40 MG PO (13:59)
--- NOTE | 2024-02-28 14:04 | PTCARENOTE ---
Pt AOx3, no complaints of pain or discomfort. Pt c/o anxiety, received order for ativan dose one time. Pt had ECHO today. VSS, SB on monitor. Call dominguez within reach.
[2024-02-28] MEDS: ATIVAN 0.25 MG PO (17:03)
== END 2024-02-28 17:56 | disposition home or self-care (01) ==
LOC: IVU 22:47
PROVIDERS: Nurse Practitioner Family; Physician Assistant; ADMITTING PHYSICIAN Hospitalist; ATTENDING PHYSICIAN Internal Medicine; EMERGENCY PHYSICIAN Student in an Organized Health Care Education/Training Program
DX: R55 Syncope and collapse (principal); R42 Dizziness and giddiness; F41.1 Generalized anxiety disorder; I12.9 Hypertensive chronic kidney disease with stage 1 through stage 4 chronic kidney disease, or unspecified chronic kidney disease; R51.9 Headache, unspecified; J44.89 Other specified chronic obstructive pulmonary disease; I25.10 Atherosclerotic heart disease of native coronary artery without angina pectoris; E78.00 Pure hypercholesterolemia, unspecified; E03.9 Hypothyroidism, unspecified; M94.0 Chondrocostal junction syndrome [Tietze]; K44.9 Diaphragmatic hernia without obstruction or gangrene; N18.32 Chronic kidney disease, stage 3b; K21.9 Gastro-esophageal reflux disease without esophagitis; I25.2 Old myocardial infarction; D86.9 Sarcoidosis, unspecified; J84.9 Interstitial pulmonary disease, unspecified; I95.9 Hypotension, unspecified; R00.1 Bradycardia, unspecified; D47.2 Monoclonal gammopathy; F32.A Depression, unspecified; I31.39 Other pericardial effusion (noninflammatory); E21.3 Hyperparathyroidism, unspecified; D64.9 Anemia, unspecified; Z59.19 Other inadequate housing; Z90.49 Acquired absence of other specified parts of digestive tract; Z87.891 Personal history of nicotine dependence; Z90.710 Acquired absence of both cervix and uterus; Z87.440 Personal history of urinary (tract) infections; Z87.01 Personal history of pneumonia (recurrent); Z79.51 Long term (current) use of inhaled steroids; Z79.890 Hormone replacement therapy; Z79.82 Long term (current) use of aspirin; Z88.0 Allergy status to penicillin; Z88.8 Allergy status to other drugs, medicaments and biological substances; Z91.040 Latex allergy status; Z95.5 Presence of coronary angioplasty implant and graft
CPT/HCPCS: 70450; 80048; 80053; 81003; 81015; 84443; 84484; 85025; 85027; 93005; 93306; 94640; 99285; G0378

== ENCOUNTER 2024-04-15 09:49 | Emergency (ER) | payer MEDICARE, OTHER, SELFPAY ==
[2024-04-15 10:06] VITALS: BP 168/100
--- NOTE | 2024-04-15 10:57 | ED.SKININJ ---
HPI-Injury
General
Chief Complaint: Bite
Time Seen by Provider: 04/15/24 10:35
History of Present Illness-Injury
Initial Injury comments:
74-year-old female presents the emergency department for evaluation of a cat bite to the left hand that occurred 2 days ago. Was bit by her cat, cat is up-to-date on vaccinations. Denies any pain or swelling to the area. Simply wanted to be
evaluated. No fevers or chills
Past History
Past History
ED Past Medical History: Asthma, CAD, GERD, HTN, Hypercholesterolemia, [place], Hypothyroidism and Other (sarcoidosis, renal insuff, hyperparathyroidism, anemia, PNA, Hiatal hernia, Ulcers, UTI, Fibroids, Anemia,)
ED Past Surgical History: Cardiac (Stent X 1), Cholecystectomy, Gynecological (Hysterectomy), Orthopedic (Left shoulder fracture, ) and Other (cataracts, Right breast cyst re move, )
Social History
Tobacco: Former smoker
Alcohol: None
Drug: None
Personal: Single
Living: alone
Employment: Retired
Family History
Family History: Other (Noncontributory)
Review of Systems
Review of Systems
Allergies reviewed?: Yes
All Other Systems: ROS reviewed and negative except as documented in HPI and ROS
Phy Exam
Physical Exam
Physical Exam:
GEN: Well appearing, NAD, WDWN
HEENT: Oral mucosa moist, no scleral icterus
Cardiac: Regular rate
Lung: No respiratory distress, no tachypnea
MSK: No gross deformity or injuries
Skin: Good color, no pallor or jaundice, no rashes. Minor abrasions to the dorsal left hand first and second interdigital webspace with no significant erythema. Mild ecchymosis to the base of the left thumb however range of motion is normal and
there is no swelling or tenderness
Neuro: AO x3, moves all extremities freely
Psych: Calm, cooperative
Course
Vital Signs
Initial and Last Documented VS:
Initial Vital Signs
Temp Pulse Resp BP Pulse Ox
98.2 F 60 16 168/100 98
04/15/24 10:06 04/15/24 10:06 04/15/24 10:06 04/15/24 10:06 04/15/24 10:06
Last Documented Vital Signs
Temp Pulse Resp BP Pulse Ox
98.2 F 60 16 168/100 98
04/15/24 10:06 04/15/24 10:06 04/15/24 10:06 04/15/24 10:06 04/15/24 10:06
MDM/Problems Addressed
MDM/Problems Addressed:
No clinical signs of infection at this time, do not see any need to start the patient on prophylactic antibiotics given the duration of time since the initial bite wound. Did discuss potential benefit of Tdap however the patient has a significant
latex allergy and it is not recommended to administer his vaccination, overall this is a likely low risk wound for tetanus.
*Critical Care Note
Total Time (30-74mins, 75-104mins- exclusive of procedures): Not Applicable
ED Attending Note
-
Portions of this chart may have been created with voice recognition software.� Occasional wrong word or��sound alike� substitutions may have occurred due to the inherent limitations of voice recognition software.
Discharge Plan
Departure
Patient Disposition: Home (Routine Discharge)
Date of Disposition: 04/15/24
Time of Disposition: 10:57
Patient with high blood pressure during this ER visit?: No
Discharge Problem:
Cat bite of left hand
Instructions: Animal Bites (DC)
Prescriptions:
No Action
budesonide [Pulmicort] 0.5 MG/2 ML suspension for nebulization
0.5 mg inhalation R BID
acetaminophen [Tylenol Extra Strength] 500 mg Tablet
500 mg PO DAILYPRN PRN (Reason: mild pain)
levothyroxine 50 mcg Tablet
50 mcg PO DAILY
erythromycin 5 mg/gram (0.5 %) Ointment
1 applic BOTH EYES HS
Patient Comments:
04/06/23 filled on 03/21/23
Systane (PF) 0.4-0.3 % Dropperette
1 drp BOTH EYES BID
levalbuterol tartrate [Xopenex HFA] 45 mcg/actuation Hfa Aerosol Inhaler
2 inh INHALATION R Q6HPRN PRN (Reason: sob)
atorvastatin 80 MG tablet
80 mg PO HS
ipratropium-albuterol 0.5 mg-3 mg(2.5 mg base)/3 mL Solution For Nebulization
3 ml INHALATION R TID
nitroglycerin 0.4 mg Tablet, Sublingual
0.4 mg SUBLINGUAL [id number] PRN (Reason: chest pain)
carvedilol 12.5 mg Tablet
12.5 mg PO BID Qty: 60 0RF
Avenova 0.01 % [place],Non-Aerosol
1 spray TOPICAL BID
ipratropium-albuterol 0.5 mg-3 mg(2.5 mg base)/3 mL Solution For Nebulization
3 ml INHALATION R HSPRN PRN (Reason: sob)
pantoprazole 40 mg Tablet,Delayed Release (Dr/Ec)
40 mg PO NOON
losartan 25 mg Tablet
25 mg PO DAILY
aspirin 81 MG tablet,delayed release (DR/EC)
81 mg PO HS
lorazepam 0.5 mg tablet
0.5 mg PO HSPRN PRN (Reason: sleep)
Referrals:
UNKNOWN - PT DOES,NOT KNOW [Family Provider] -
Activity Restrictions/Additional Instructions:
There are no signs of infection to the left hand at this time
Due to your latex allergy, we do not recommend administering you the tetanus vaccination
If you are interested in receiving this, you can request a booster from your pharmacy. This vaccine needs to come from a vial and not a pre-loaded syringe
Interventions
Interventions:
*Risk Screen - Suicide Last Done: 04/15/24 10:06
*General Assessment Last Done: 04/15/24 10:56
*Neglect/Abuse Screening Last Done: 04/15/24 10:06
*ED COVID-19 Vaccine History Last Done: 04/15/24 10:56
*Nursing Disposition Last Done: 04/15/24 11:02
ED-Skin Assessment Last Done: 04/15/24 10:56
Discharge Date and Time
Discharge Date/Time: 04/15/24 11:02
Print Language: ICELANDIC
== END 2024-04-15 11:02 | disposition home or self-care (01) ==
LOC: EMR 09:49
PROVIDERS: EMERGENCY PHYSICIAN Emergency Medicine
DX: S60.512A Abrasion of left hand, initial encounter (principal); S60.012A Contusion of left thumb without damage to nail, initial encounter; W55.01XA Bitten by cat, initial encounter; E03.9 Hypothyroidism, unspecified; E78.00 Pure hypercholesterolemia, unspecified; I10 Essential (primary) hypertension; J45.909 Unspecified asthma, uncomplicated; K21.9 Gastro-esophageal reflux disease without esophagitis; I25.10 Atherosclerotic heart disease of native coronary artery without angina pectoris; Z95.5 Presence of coronary angioplasty implant and graft; Z87.891 Personal history of nicotine dependence; Z91.040 Latex allergy status
CPT/HCPCS: 99282

== ENCOUNTER 2024-08-23 15:54 | Emergency (ER) | payer MEDICARE, OTHER, SELFPAY ==
[2024-08-23 16:02] VITALS: BP 145/84
--- NOTE | 2024-08-23 16:19 | ED.GENMED ---
History of Present Illness
General
Chief Complaint: Crisis Evaluation
Source: patient
Time Seen by Provider: 08/23/24 16:16
History of Present Illness
History of Present Illness:
74-year-old female with past medical history of sarcoidosis, hypertension, hyperlipidemia, CAD status postacute [place], GERD, chronic kidney disease and anxiety presenting to the emergency department for evaluation of some depression and anxiety over
the recent estrangement to her son over the last 4 months. Patient has no physical concerns, denies any SI or HI, hallucinations. Patient states she came to the ER today merely to talk to somebody about her anxiousness over the situation.
Past History
Past History
ED Past Medical History: Asthma, CAD, GERD, HTN, Hypercholesterolemia, [place], Hypothyroidism and Other (sarcoidosis, renal insuff, hyperparathyroidism, anemia, PNA, Hiatal hernia, Ulcers, UTI, Fibroids, Anemia,)
ED Past Surgical History: Cardiac (Stent X 1), Cholecystectomy, Gynecological (Hysterectomy), Orthopedic (Left shoulder fracture, ) and Other (cataracts, Right breast cyst re move, )
Social History
Tobacco: Former smoker
Alcohol: None
Drug: None
Personal: Single
Living: alone
Employment: Retired
Family History
Family History: Other (Noncontributory)
Review of Systems
Review of Systems
All Other Systems: ROS reviewed and negative except as documented in HPI and ROS
Phy Exam
Physical Exam
Physical Exam:
GENERAL: Alert , in no apparent distress
EYE: conjunctiva clear
Head: Normocephalic atraumatic
NECK: Supple,
ENT: mmm.
LUNGS: no acute respiratory distress
NEUROLOGICAL: Alert and oriented
SKIN: Warm and dry, skin intact.
MUSCULOSKELETAL: well perfused.
PSYCH: Normal and appropriate interaction.
Scores
Heart Failure Risk
Heart Failure Risk Score: Not Applicable
Heart Score for Chest Pain Patients
STEMI patient?: Not applicable
Withdrawal Assessment of Alcohol
Withdrawal Assessment Completed?: Not applicable
Course
Orders/Labs/Results
Orders:
Orders
08/23/24 16:07
Crisis Consult Urgent
Reason for Consult: depression anxiety
Vital Signs
Initial and Last Documented VS:
Initial Vital Signs
Temp Pulse Resp BP Pulse Ox
98.2 F 90 17 145/84 99
08/23/24 16:02 08/23/24 16:02 08/23/24 16:02 08/23/24 16:02 08/23/24 16:02
Last Documented Vital Signs
Temp Pulse Resp BP Pulse Ox
98.2 F 90 17 145/84 99
08/23/24 16:02 08/23/24 16:02 08/23/24 16:02 08/23/24 16:02 08/23/24 16:02
MDM/Problems Addressed
Differential Diagnosis Includes:
Adjustment disorder, no emergent physical concerns, no expressed suicidality or homicidality
MDM/Problems Addressed:
74-year-old female presenting to the ER for crisis evaluation due to increased anxiety over the recent estranged from her son. No physical concerns. I do not suspect any emergent pathology and suspect patient will likely just need outpatient care.
Will disposition to crisis for further evaluation and treatment. Patient is otherwise stable for discharge from the emergency department.
*Pulse Oximetry
Patient hypoxic: no
*Critical Care Note
Total Time (30-74mins, 75-104mins- exclusive of procedures): Not Applicable
ED Attending Note
-
Portions of this chart may have been created with voice recognition software.� Occasional wrong word or��sound alike� substitutions may have occurred due to the inherent limitations of voice recognition software.
Discharge Plan
Departure
Patient Disposition: Home (Routine Discharge)
Date of Disposition: 08/23/24
Time of Disposition: 16:19
Patient with high blood pressure during this ER visit?: Yes
Discharge Problem:
Acute adjustment disorder with mixed anxiety and depressed mood
Instructions: Adjustment disorder
Prescriptions:
No Action
budesonide [Pulmicort] 0.5 MG/2 ML suspension for nebulization
0.5 mg inhalation R BID
acetaminophen [Tylenol Extra Strength] 500 mg Tablet
500 mg PO DAILYPRN PRN (Reason: mild pain)
levothyroxine 50 mcg Tablet
50 mcg PO DAILY
erythromycin 5 mg/gram (0.5 %) Ointment
1 applic BOTH EYES HS
Patient Comments:
04/06/23 filled on 03/21/23
Systane (PF) 0.4-0.3 % Dropperette
1 drp BOTH EYES BID
levalbuterol tartrate [Xopenex HFA] 45 mcg/actuation Hfa Aerosol Inhaler
2 inh INHALATION R Q6HPRN PRN (Reason: sob)
atorvastatin 80 MG tablet
80 mg PO HS
ipratropium-albuterol 0.5 mg-3 mg(2.5 mg base)/3 mL Solution For Nebulization
3 ml INHALATION R TID
nitroglycerin 0.4 mg Tablet, Sublingual
0.4 mg SUBLINGUAL [id number] PRN (Reason: chest pain)
carvedilol 12.5 mg Tablet
12.5 mg PO BID Qty: 60 0RF
Avenova 0.01 % [place],Non-Aerosol
1 spray TOPICAL BID
ipratropium-albuterol 0.5 mg-3 mg(2.5 mg base)/3 mL Solution For Nebulization
3 ml INHALATION R HSPRN PRN (Reason: sob)
pantoprazole 40 mg Tablet,Delayed Release (Dr/Ec)
40 mg PO NOON
losartan 25 mg Tablet
25 mg PO DAILY
aspirin 81 MG tablet,delayed release (DR/EC)
81 mg PO HS
lorazepam 0.5 mg tablet
0.5 mg PO HSPRN PRN (Reason: sleep)
Referrals:
NONE,* [Family Provider] -
Interventions
Interventions:
*Risk Screen - Suicide Last Done: 08/23/24 15:55
*General Assessment Last Done: 08/23/24 16:04
*Neglect/Abuse Screening Last Done: 08/23/24 16:04
*ED COVID-19 Vaccine History Last Done: 08/23/24 16:04
Discharge Date and Time
Print Language: SETSWANA
== END 2024-08-23 16:30 | disposition home or self-care (01) ==
LOC: EMR 15:54
PROVIDERS: EMERGENCY PHYSICIAN Emergency Medicine
DX: F43.23 Adjustment disorder with mixed anxiety and depressed mood (principal); I12.9 Hypertensive chronic kidney disease with stage 1 through stage 4 chronic kidney disease, or unspecified chronic kidney disease; N18.9 Chronic kidney disease, unspecified; Z87.891 Personal history of nicotine dependence
CPT/HCPCS: 99283